=== PATIENT | male | born 1965 | race Caucasian/White ===

== ENCOUNTER 2016-08-19 15:54 | Emergency (ER) | payer OTHER ==
[2016-08-19 16:48] VITALS: BP 126/65
--- NOTE | 2016-08-19 17:01 | UC ---
Ear Complaint HPI - HPI Summary HPI Summary: R ear pain and swelling/tender underneath for about 10 days. Had mastoidectomy on that side more than 10 years, followed by frequent AOE. Usually takes oral abx and drops because he has DMII. Pt sees Dr. August for ENT specialty. - History of Current Complaint Chief Complaint: UCEar Stated Complaint: RIGHT EAR PAIN Time Seen by Provider: 08/19/16 16:52 Hx Obtained From: Patient Onset/Duration: Gradual Onset, Lasting Days Severity Initially: Mild Severity Currently: Moderate Aggravating Factors: Nothing Associated Signs/Symptoms: Positive: Discharge, Swelling @ - Allergies/Home Medications Allergies/Adverse Reactions: Allergies Allergy/AdvReac Type Severity Reaction Status Date / Time No Known Allergies Allergy Verified 08/19/16 16:48 PMH/Surg Hx/FS Hx/Imm Hx Endocrine History Of: Reports: Diabetes - Type 2 Denies: Thyroid Disease, Hyperthyroidism, Hypothyroidism, Dyslipidemia Cardiovascular History Of: Denies: Cardiac Disorders, Hypertension, Pacemaker/ICD, Myocardial Infarction , Congestive Heart Failure, Atrial Fibrillation, Deep Vein Thrombosis, Bleeding Disorders Respiratory History Of: Denies: COPD, Asthma, Bronchitis, Pneumonia, Pulmonary Embolism GI/ History Of: Denies: Gastroesophageal Reflux, Ulcer, Gastrointestinal Bleed, Gall Bladder Disease, Kidney Stones, Diverticulitis, Renal Disease, Urosepsis Neurological History Of: Denies: TIA, CVA, Dementia, Seizures, Migraine Psychological History Of: Denies: Anxiety, Depression, Bipolar Disorder, Schizophrenia, Post Traumatic Stress Disorder Cancer History Of: Denies: Lung Cancer, Colorectal Cancer, Breast Cancer, Prostate Cancer, Cervical Cancer Other History Of: Negative For: HIV, Hepatitis B, Hepatitis C, Anticoagulant Therapy - Surgical History Surgical History: Yes Surgery Procedure, Year, and Place: R mastoidectomy. hemmorhoid surgery - Family History Known Family History: Positive: Cardiac Disease, Hypertension, Diabetes - Social History Lives: With Family Alcohol Use: None Substance Use Type: None Smoking Status (MU): Heavy Every Day Tobacco Smoker Type: Cigarettes Amount Used/How Often: 1 PPD Length of Time of Smoking/Using Tobacco: 25 years Household Exposure Type: Cigarettes Review of Systems Constitutional: Negative Skin: Negative Eyes: Negative ENT: Ear Ache Respiratory: Negative Cardiovascular: Negative Gastrointestinal: Negative Genitourinary: Negative Motor: Negative Neurovascular: Negative Musculoskeletal: Negative Neurological: Negative Psychological: Negative All Other Systems Reviewed And Are Negative: Yes Physical Exam Triage Information Reviewed: Yes Appearance: Well-Appearing, No Pain Distress, Well-Nourished Vital Signs: Initial Vital Signs Temp 99.4 F 08/19/16 16:46 Pulse 80 08/19/16 16:46 Resp 16 08/19/16 16:46 BP 126/65 08/19/16 16:46 Pulse Ox 95 08/19/16 16:46 Vital Signs Reviewed: Yes Eye Exam: Normal Eyes: Positive: Conjunctiva Clear ENT: Positive: Hearing grossly normal, Pharynx normal, TMs normal - L TM only, Other: - yellow discharge in R ear canal Dental Exam: Normal Neck exam: Normal Neck: Positive: Supple, Nontender, No Lymphadenopathy Respiratory Exam: Normal Respiratory: Positive: Chest non-tender, Lungs clear, Normal breath sounds, No respiratory distress, No accessory muscle use Cardiovascular Exam: Normal Cardiovascular: Positive: RRR, No Murmur Musculoskeletal Exam: Normal Neurological Exam: Normal Psychological Exam: Normal Skin Exam: Normal Ear Complaint Course/Dx - Differential Dx/Diagnosis Provider Diagnoses: R otitis externa Discharge - Discharge Plan Condition: Stable Disposition: HOME Prescriptions: Amoxicillin/Clavulanate TAB* [Augmentin TAB 875*] 875 mg PO BID #10 tab Ciproflox/Dexameth OTIC.SUSP* [Ciprodex OTIC.SUSP*] 4 drop RIGHT EAR BID #1 btl Patient Education Materials: Otitis Externa (ED) Referrals: Huang Leger MD [Primary Care Provider] - Jm August MD [Medical Doctor] - If Needed Additional Instructions: Please follow up with Dr. August if you do not see some improvement within the next 5 days. Come back here for any fever or severe symptoms.
== END 2016-08-19 17:04 | disposition home or self-care (01) ==
LOC: UCCORT 15:54
DX: H60.91 Unspecified otitis externa, right ear (principal); F17.210 Nicotine dependence, cigarettes, uncomplicated
CPT/HCPCS: 99212; G0463

== ENCOUNTER 2016-11-11 09:10 | Emergency (ER) | payer OTHER ==
[2016-11-11 09:20] VITALS: BP 117/73
--- NOTE | 2016-11-11 10:02 | UC ---
Ear Complaint HPI - HPI Summary HPI Summary: 51 yo male with right otalgia x 1 week no f/c hx right mastoiditis and and surgery about 20 yrs ago hurts anterior to ear as well - History of Current Complaint Chief Complaint: UCEar Stated Complaint: RIGHT EAR PAIN Time Seen by Provider: 11/11/16 09:46 Hx Obtained From: Patient Onset/Duration: Gradual Onset, Lasting Weeks Severity Initially: Mild Severity Currently: Mild Pain Intensity: 3 Pain Scale Used: 0-10 Numeric Associated Signs/Symptoms: Positive: Hearing Loss - chronic Related History: Prior ENT Surgery - Allergies/Home Medications Allergies/Adverse Reactions: Allergies Allergy/AdvReac Type Severity Reaction Status Date / Time No Known Allergies Allergy Verified 11/11/16 09:15 Home Medications: Home Medications metFORMIN* [Glucophage 500 MG TAB *] 500 mg PO DAILY 11/11/16 [History Confirmed 11/11/16] PMH/Surg Hx/FS Hx/Imm Hx Previously Healthy: Yes Endocrine History Of: Reports: Diabetes - Type 2 Denies: Thyroid Disease, Hyperthyroidism, Hypothyroidism, Dyslipidemia Cardiovascular History Of: Denies: Cardiac Disorders, Hypertension, Pacemaker/ICD, Myocardial Infarction , Congestive Heart Failure, Atrial Fibrillation, Deep Vein Thrombosis, Bleeding Disorders Respiratory History Of: Denies: COPD, Asthma, Bronchitis, Pneumonia, Pulmonary Embolism GI/ History Of: Denies: Gastroesophageal Reflux, Ulcer, Gastrointestinal Bleed, Gall Bladder Disease, Kidney Stones, Diverticulitis, Renal Disease, Urosepsis Neurological History Of: Denies: TIA, CVA, Dementia, Seizures, Migraine Psychological History Of: Denies: Anxiety, Depression, Bipolar Disorder, Schizophrenia, Post Traumatic Stress Disorder Cancer History Of: Denies: Lung Cancer, Colorectal Cancer, Breast Cancer, Prostate Cancer, Cervical Cancer Other History Of: Negative For: HIV, Hepatitis B, Hepatitis C, Anticoagulant Therapy - Surgical History Surgical History: Yes Surgery Procedure, Year, and Place: Right Mastoidectomy, ~[place], [place]; Hemorrhoidectomy, ~[place], [place] - Family History Known Family History: Positive: Cardiac Disease, Hypertension, Diabetes - Social History Alcohol Use: None Substance Use Type: None Smoking Status (MU): Heavy Every Day Tobacco Smoker Type: Cigarettes Amount Used/How Often: 1 PPD Length of Time of Smoking/Using Tobacco: Since Age 24 Have You Smoked in the Last Year: Yes Household Exposure Type: Cigarettes Review of Systems Constitutional: Negative Skin: Negative Eyes: Negative ENT: Ear Ache Respiratory: Negative Cardiovascular: Negative Gastrointestinal: Negative Genitourinary: Negative Motor: Negative Neurovascular: Negative Musculoskeletal: Negative Neurological: Negative Psychological: Negative All Other Systems Reviewed And Are Negative: Yes Physical Exam Triage Information Reviewed: Yes Appearance: Well-Appearing, No Pain Distress, Well-Nourished Vital Signs: Initial Vital Signs Temp 97.4 F 11/11/16 09:13 Pulse 83 11/11/16 09:13 Resp 16 11/11/16 09:13 BP 117/73 11/11/16 09:13 Pulse Ox 100 11/11/16 09:13 Eyes: Positive: Conjunctiva Clear ENT: Positive: TMs normal - unable to visualize right TM due to narrow EAC and debris in canal/tragal tenderness/no mastoid tendernessd. Negative: Normal ENT inspection, Hearing grossly normal, Nasal congestion, Nasal drainage Dental Exam: Normal Neck exam: Normal Neck: Positive: No Lymphadenopathy Respiratory: Positive: Lungs clear, Normal breath sounds, No respiratory distress Cardiovascular: Positive: RRR, No Murmur Musculoskeletal: Positive: ROM Intact, No Edema Neurological: Positive: Alert Psychological Exam: Normal Skin Exam: Normal Ear Complaint Course/Dx - Differential Dx/Diagnosis Provider Diagnoses: right otitis externa Discharge - Discharge Plan Condition: Stable Disposition: HOME Prescriptions: Amoxicillin/Clavulanate TAB* [Augmentin TAB 875*] 875 mg PO BID #20 tab Neomyc/Polym/HC 1% OTIC SUSP* [Cortisporin Otic Susp 1%*] 4 drop RIGHT EAR QID # 1 btl Patient Education Materials: Otitis Externa (ED) Referrals: Huang Leger MD [Primary Care Provider] - 4 Days (if not markedly better) Additional Instructions: advil or aleve
== END 2016-11-11 09:58 | disposition home or self-care (01) ==
LOC: UCCORT 09:10
DX: H60.91 Unspecified otitis externa, right ear (principal); E11.9 Type 2 diabetes mellitus without complications; Z79.84 Long term (current) use of oral hypoglycemic drugs
CPT/HCPCS: 99212; G0463

== ENCOUNTER 2017-01-18 18:57 | Emergency (ER) | payer OTHER ==
[2017-01-18 19:26] VITALS: BP 122/68
[2017-01-18] MEDS ORDERED: Ibuprofen TAB* 600 MG PO ONE (19:30)
--- NOTE | 2017-01-18 19:34 | UC ---
Lower Extremity/Ankle HPI - HPI Summary HPI Summary: today at 1500, playing basketball, twisted right ankle. Took Ibuprofen 600mg at 1600. [ End ] - History of Current Complaint Chief Complaint: UCLowerExtremity Stated Complaint: RIGHT ANKLE INJURY Time Seen by Provider: 01/18/17 19:08 Hx Obtained From: Patient Onset/Duration: Sudden Onset Severity Initially: Moderate Severity Currently: Moderate Aggravating Factor(s): Standing, Ambulation Alleviating Factor(s): Rest, Elevation Able to Bear Weight: Yes - Risk Factors Gout Risk Factors: Age Over 40 - Allergies/Home Medications Allergies/Adverse Reactions: Allergies Allergy/AdvReac Type Severity Reaction Status Date / Time No Known Allergies Allergy Verified 01/18/17 19:04 Home Medications: Home Medications Ibuprofen TAB* [Motrin TAB* 600 MG] 600 mg PO Q8H PRN 01/18/17 [History Confirmed 01/18/17] PMH/Surg Hx/FS Hx/Imm Hx Previously Healthy: Yes Other History Of: Negative For: HIV, Hepatitis B, Hepatitis C, Anticoagulant Therapy - Surgical History Surgical History: Yes Surgery Procedure, Year, and Place: Right Mastoidectomy, ~2004, [facility]; Hemorrhoidectomy, ~[place], [place] - Family History Known Family History: Positive: Cardiac Disease, Hypertension, Diabetes - Social History Occupation: Employed Full-time Lives: With Family Alcohol Use: None Substance Use Type: None Smoking Status (MU): Heavy Every Day Tobacco Smoker Type: Cigarettes Amount Used/How Often: 1 PPD Length of Time of Smoking/Using Tobacco: Since Age 24 Have You Smoked in the Last Year: Yes Household Exposure Type: Cigarettes Review of Systems Constitutional: Negative Skin: Negative Eyes: Negative ENT: Negative Respiratory: Negative Cardiovascular: Negative Gastrointestinal: Negative Genitourinary: Negative Motor: Decreased ROM Neurovascular: Negative Musculoskeletal: Arthralgia Neurological: Negative Psychological: Negative All Other Systems Reviewed And Are Negative: Yes Physical Exam Triage Information Reviewed: Yes Appearance: Well-Appearing Vital Signs: Initial Vital Signs Temp 98.9 F 01/18/17 19:01 Pulse 99 01/18/17 19:01 Resp 16 01/18/17 19:01 BP 122/68 01/18/17 19:01 Pulse Ox 97 01/18/17 19:01 Vital Signs Reviewed: Yes Neck: Positive: 1 Respiratory Exam: Normal Cardiovascular Exam: Normal Musculoskeletal: Positive: ROM Limited @, Other: - right lateral malleolus swelling and tenderness to palpation as well as medial ankle tenderness to palpation but no swelling or bruising present. no distal tib/fib tenderness to lateral foot tenderness . FROM of toes. knee exam WNL. Cap refill < 3 sec. pulses brisk.. Negative: ROM Intact Neurological Exam: Normal Psychological Exam: Normal Skin Exam: Normal Lower Extremity Course/Dx - Course Course Of Treatment: xray neg - Differential Dx/Diagnosis Differential Diagnosis/HQI/PQRI: Contusion, Dislocation, Fracture (Closed), Sprain, Strain Provider Diagnoses: Right ankle sprain Discharge - Discharge Plan Condition: Good Disposition: HOME Patient Education Materials: Ankle Sprain (ED) Referrals: Huang Leger MD [Primary Care Provider] -
--- NOTE | 2017-01-18 19:50 | RAD ---
INDICATION: Right ankle injury. TECHNIQUE: 3 views of the right ankle were obtained. FINDINGS: Soft tissue swelling is noted along the anterolateral aspect of the ankle. No fracture is seen. Joint spaces appear maintained. IMPRESSION: SOFT TISSUE SWELLING, NO FRACTURE IS SEEN.
== END 2017-01-18 20:10 | disposition home or self-care (01) ==
LOC: UCCORT 18:57
DX: S93.401A Sprain of unspecified ligament of right ankle, initial encounter (principal); X50.1XXA Overexertion from prolonged static or awkward postures, initial encounter; Y93.67 Activity, basketball; Y92.310 Basketball court as the place of occurrence of the external cause; F17.210 Nicotine dependence, cigarettes, uncomplicated
CPT/HCPCS: 99213; A9270-GY; G0463

== ENCOUNTER 2017-02-09 09:25 | Emergency (ER) | payer OTHER ==
[2017-02-09] MEDS ORDERED: Lidocaine 4% TOPICAL* 50 ML TOP.SOLN TOPICAL ONE (09:47)
[2017-02-09 09:52] VITALS: BP 135/87
[2017-02-09] MEDS ORDERED: Lidocaine 2% VISCOUS* 15 ML UDC PO ONE (09:57)
--- NOTE | 2017-02-09 10:00 | UC ---
Ear Complaint HPI - HPI Summary HPI Summary: Patient has had re occuring ear pain and infection today presents with new onset right sided facial lesions, swollen external ear and canal. some swelling around the ear, hx of mastoiditis with some of the mastoid having been removed. - History of Current Complaint Chief Complaint: UCEar Stated Complaint: EAR PAIN Time Seen by Provider: 02/09/17 09:40 Hx Obtained From: Patient Onset/Duration: Sudden Onset Severity Initially: Moderate Severity Currently: Severe Associated Signs/Symptoms: Positive: Swelling @, URI Symptoms - Allergies/Home Medications Allergies/Adverse Reactions: Allergies Allergy/AdvReac Type Severity Reaction Status Date / Time No Known Allergies Allergy Verified 02/09/17 09:48 PMH/Surg Hx/FS Hx/Imm Hx Previously Healthy: Yes Other History Of: Negative For: HIV, Hepatitis B, Hepatitis C, Anticoagulant Therapy - Surgical History Surgical History: Yes Surgery Procedure, Year, and Place: Right Mastoidectomy, ~2004, [facility]; Hemorrhoidectomy, ~[place], [place] - Family History Known Family History: Positive: Cardiac Disease, Hypertension, Diabetes - Social History Alcohol Use: None Substance Use Type: None Smoking Status (MU): Heavy Every Day Tobacco Smoker Type: Cigarettes Amount Used/How Often: 1 PPD Length of Time of Smoking/Using Tobacco: Since Age 24 Have You Smoked in the Last Year: Yes Household Exposure Type: Cigarettes Review of Systems Constitutional: Negative Skin: Other - multiple red lesions, nasal labia lesion Eyes: Eye Redness ENT: Negative Respiratory: Negative Cardiovascular: Negative Gastrointestinal: Negative Genitourinary: Negative Motor: Negative Neurovascular: Negative Musculoskeletal: Negative Neurological: Negative Psychological: Negative All Other Systems Reviewed And Are Negative: Yes Physical Exam Triage Information Reviewed: Yes Appearance: Well-Nourished, Ill-Appearing, Pain Distress Vital Signs: Initial Vital Signs Temp 98.8 F 02/09/17 09:48 Pulse 81 02/09/17 09:48 Resp 16 02/09/17 09:48 BP 135/87 02/09/17 09:48 Pulse Ox 97 02/09/17 09:48 Vital Signs Reviewed: Yes Eye Exam: Normal Eyes: Positive: Conjunctiva Inflamed ENT: Positive: Pharyngeal erythema, TM red Dental Exam: Normal Neck exam: Normal Neck: Positive: Supple, Nontender, No Lymphadenopathy Respiratory Exam: Normal Respiratory: Positive: Chest non-tender, Lungs clear, Normal breath sounds Cardiovascular Exam: Normal Cardiovascular: Positive: RRR, No Murmur, Pulses Normal Abdominal Exam: Normal Abdomen Description: Positive: Nontender, No Organomegaly, Soft Bowel Sounds: Positive: Present Musculoskeletal Exam: Normal Musculoskeletal: Positive: Strength Intact, ROM Intact, No Edema Neurological Exam: Normal Neurological: Positive: Alert, Muscle Tone Normal Psychological Exam: Normal Skin: Positive: significant lesion(s) - multiple red lesions, pain in the right eay, and ear, swelling of the mastoid area noted, ear canal is swollen. lesion inside ear canal noted. Ear Complaint Course/Dx - Course Course Of Treatment: hx obtained, exam performed ,meds reviewed, reviewed case with Dr Forrester who also examined the patient. treated for Kyle Nieto, referred to Dermatology and follow up with PCP. dispensed remainder of lidocaine to use as needed for pain - Differential Dx/Diagnosis Differential Diagnosis/HQI/PQRI: Cellulitis, Mastoiditis, Otitis Externa, Other - shingles Provider Diagnoses: herpatic facial lesions. Ear pain pain. Right eye pain. 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 Take the medications as prescribed. 2 Follow up with your PCP and dermatology, I have given a referral to Dr Watkins office. 3. if you develop any severe worsening of symtpoms report for medical care in the ER.
== END 2017-02-09 10:45 | disposition home or self-care (01) ==
LOC: UCCORT 09:25
DX: B00.9 Herpesviral infection, unspecified (principal); H92.01 Otalgia, right ear; H57.11 Ocular pain, right eye; F17.210 Nicotine dependence, cigarettes, uncomplicated
CPT/HCPCS: 99212; G0463

== ENCOUNTER 2017-03-06 08:59 | Emergency (ER) | payer OTHER ==
[2017-03-06 09:30] VITALS: BP 133/78
--- NOTE | 2017-03-06 10:09 | UC ---
Tolu Cox Angela, scribed for [facility] CenterAlexandru MD on 03/06/17 at 0954 . Ear Complaint HPI - HPI Summary HPI Summary: In Room Note: This pt is a 51 y/o male presenting to [facility] c/o right ear pain x3 days. Pt notes his face under his right ear is swollen. He additionally c/o mild pruritic red rash going down his neck. His last ear infection was 3 weeks ago and was on steroids for 5 days. He notes he gets 1 or 2 ear infections every summer. Pt denies nausea, vomiting, diarrhea, abd pain, cough, sore throat. Pt denies using any new lotion cream, shaving cream, or soap. He does not take medication for type 2 diabetes (for 7 months now) and is followed by Dr. Leger. MDs Note: Vital signs are stable, blood pressure is 133/78. 4/10 ear discomfort. Visit history reveals multiple visits for ear problems, particularly in the right ear. Pt is on no blood pressure medications. The pt has diabetes, no history of HTN. Nurses Note: Pt states numerous ear infections over the past couple of months. Pt states had R ear 1.5 weeks ago, just finished medication. States current infection started 3 days ago. Getting progressively worse, now c/o of facial swelling with mild rash down into neck. Followed by Dr. August. - History of Current Complaint Chief Complaint: UCEar Stated Complaint: EAR PAIN Time Seen by Provider: 03/06/17 09:35 Hx Obtained From: Patient Onset/Duration: Lasting Days Aggravating Factors: Nothing Alleviating Factors: Nothing Associated Signs/Symptoms: Positive: Swelling @ - of face under his right ear. Negative: Discharge, Hearing Loss - Allergies/Home Medications Allergies/Adverse Reactions: Allergies Allergy/AdvReac Type Severity Reaction Status Date / Time No Known Allergies Allergy Verified 03/06/17 09:21 PMH/Surg Hx/FS Hx/Imm Hx - Additional Past Medical History Additional PMH: PMHx: Ulcerative colitis 15 yrs ago. Endocrine History: Diabetes Other Cardiovascular History: DENIES: HTN Other History Of: Negative For: HIV, Hepatitis B, Hepatitis C, Anticoagulant Therapy - Surgical History Surgical History: Yes Surgery Procedure, Year, and Place: Right Mastoidectomy, ~2004, [place]; Hemorrhoidectomy, ~[place], [place] - Family History Known Family History: Positive: Cardiac Disease - father, Hypertension, Diabetes - Social History Occupation: Employed Full-time - [employer]. Alcohol Use: None Substance Use Type: None Smoking Status (MU): Heavy Every Day Tobacco Smoker Type: Cigarettes Amount Used/How Often: 1 PPD Length of Time of Smoking/Using Tobacco: Since Age 24 Have You Smoked in the Last Year: Yes Household Exposure Type: Cigarettes Review of Systems Constitutional: Negative Skin: Rash - on both cheeks of face ENT: Ear Ache Respiratory: Negative Cardiovascular: Negative Gastrointestinal: Negative Genitourinary: Negative Motor: Negative Neurovascular: Negative Musculoskeletal: Negative Neurological: Negative All Other Systems Reviewed And Are Negative: Yes Physical Exam Triage Information Reviewed: Yes Vital Signs: Initial Vital Signs Temp 98 F 03/06/17 09:22 Pulse 80 03/06/17 09:22 Resp 18 03/06/17 09:22 BP 133/78 03/06/17 09:22 Pulse Ox 96 03/06/17 09:22 Vital Signs Reviewed: Yes - Additional Comments The patient is well-nourished in no acute distress and in no acute pain. The skin is warm and dry. ON THE RIGHT AND LEFT CHEEK THERE IS MACULOPAPULAR ERYTHEMATOUS RASH. It appears to be an allergic skin reaction. HEENT: The head is normocephalic and atraumatic. The pupils are equal and reactive. The conjunctivae are clear and without drainage. Nares are patent and without drainage. Mouth reveals moist mucous membranes and the throat is without erythema and exudate. THERE IS SLIGHT TENDERNESS IN THE RIGHT MAXILLARY SINUS INFERIORLY. THERE IS MILD SWELLING OF THE LYMPH NODES IN THE ANGLE OF THE MANDIBLE ON THE RIGHT. THERE IS SOME ERYTHEMA OF THE TRAGUS AND MILD TENDERNESS WITH PALPATION OF THE EAC, THE TYMPANIC MEMBRANE IS SCARRED ON THE RIGHT AND SHOWS SOME ERYTHEMA. Neck is supple with full range of motion and non-tender. Respiratory: Chest is non-tender. Lungs are clear to auscultation and breath sounds are symmetrical and equal. Cardiovascular: Hear is regular rate and rhythm. There is no murmur or rub auscultated. There is no peripheral edema and pulses are symmetrical and equal. Abdomen: The abdomen is soft and non-tender. There are normal bowel sounds heard in all four quadrants. Musculoskeletal: There is no back pain noted. Extremities are non-tender with full range of motion. There is good capillary refill. There is no peripheral edema or calf tenderness elicited. Neurological: Patient is alert and oriented to person, place and time. The patient has symmetrical motor strength in all four extremities. Psychiatric: The patient has an appropriate affect and does not exhibit any anxiety or depression. Ear Complaint Course/Dx - Course Course Of Treatment: Medications have been included in the original chart and reviewed. Patient is Urgent/Emergent. BP elevated due to current condition w/o HTN in PMH. On exam, THERE IS SLIGHT TENDERNESS IN THE RIGHT MAXILLARY SINUS INFERIORLY. THERE IS MILD SWELLING OF THE LYMPH NODES IN THE ANGLE OF THE MANDIBLE ON THE RIGHT. THERE IS SOME ERYTHEMA OF THE TRAGUS AND MILD TENDERNESS WITH PALPATION OF THE AEC, THE TYMPANIC MEMBRANE IS SCARRED ON THE RIGHT AND SHOWS SOME ERYTHEMA. ON THE RIGHT AND LEFT CHEEK THERE IS MACULOPAPULAR ERYTHEMATOUS RASH. MDM: I discussed with the pt the need for ear drops and oral medication for his ear infection. Although, Im not absolutely sure what caused his facial rash, I encouraged him not to shave, to use 2.5 hydrocortisone , and if necessary calamine. He will also take if necessary Benadryl and/or non- sedating anti-histamine. - Differential Dx/Diagnosis Provider Diagnoses: 1. Right external otitis. 2. Right otitis media 3. Contact dermatitis of both cheeks Discharge - Discharge Plan Condition: Stable Disposition: HOME Prescriptions: Amoxicillin PO (*) [Amoxicillin 875 MG (*)] 875 mg PO BID #20 tab MDD 2 Hydrocortisone 2.5% CREAM(NF) 1 applic TOPICAL BID #1 tube MDD 2 Neomyc/Polym/HC 1% OTIC SUSP* [Cortisporin Otic Susp 1%*] 4 drop RIGHT EAR QID # 1 btl MDD 4 DROPS Patient Education Materials: Contact Dermatitis (ED), Otitis Externa (ED), Otitis Media (ED) Referrals: Huang Leger MD [Primary Care Provider] - Additional Instructions: Thank you for helping us improve patient care by filling out the My Point Survey. WE DISCUSSED: 1. You have an outer ear infection of your canal and a middle ear infection. Use drops and take oral medication. 2. You have a localized skin reaction: use hydrocortisone, twice a day for 7 days or one day after the condition resolves. Calomine if necessary for itching. Benadryl or Zyrtec for itching. 3. Re check at any time for increased pain, redness, temperature, swelling. I will be here in 2 days; call me with any questions or concerns. The documentation as recorded by the Tolu cedeño Angela accurately reflects the service I personally performed and the decisions made by me, Alexandru Jernigan MD.
== END 2017-03-06 10:12 | disposition home or self-care (01) ==
LOC: UCEAST 08:59
DX: H60.91 Unspecified otitis externa, right ear (principal); H66.91 Otitis media, unspecified, right ear; L25.9 Unspecified contact dermatitis, unspecified cause; F17.210 Nicotine dependence, cigarettes, uncomplicated
CPT/HCPCS: 99212; G0463

== ENCOUNTER 2017-03-12 08:53 | Emergency (ER) | payer OTHER ==
[2017-03-12] MEDS ORDERED: Vancomycin(*) 1,000 MG in NS 0.9% 250 ML* 250 ML IVPB ONE (09:31)
[2017-03-12] MEDS: NS 0.9% 1000 ML* 2,000 ML IV ONE ×2 (09:52→11:19)
[2017-03-12] MEDS ORDERED: Morphine INJ* 4 MG/ML 1 ML CARPUJECT IV ONE (09:56)
[2017-03-12] MEDS ORDERED: Ondansetron INJ* 2 MG/ML VIAL IV ONE (09:57)
[2017-03-12 10:06] LABS: Hematocrit 47 % (42-52); Hemoglobin 16.3 g/dl (14.0-18.0); Mean Corpuscular HGB Conc 35 g/dl (31-36); Mean Corpuscular Hemoglobin 30 pg (27-31); Mean Corpuscular Volume 86 fL (80-94); Mean Platelet Volume 9 um3 (7.4-10.4); Red Blood Count 5.43 10^6/ul (4.0-5.4); Red Cell Distribution Width 15 % (10.5-15); White Blood Count 8.6 10^3/ul (3.5-10.8)
[2017-03-12 10:20] LABS: Albumin 3.6 g/dL (3.2-5.2); C Reactive Protein 2.29 mg/L (< 5.00); Calcium 9.9 mg/dL (8.6-10.3); EGFR African American 106.6 (>60); EGFR Non-African American 82.9 (>60); Globulin 3.2 g/dL (2-4); Total Bilirubin 0.3 mg/dL (0.2-1.0); Total Protein 6.8 g/dL (6.4-8.9)
[2017-03-12] MEDS ORDERED: Iodixanol* (CONTRAST) 320 MG/ML 100 ML SDV IV ONE (10:46)
--- NOTE | 2017-03-12 11:20 | RAD ---
HISTORY: Right ear infection, abscess, mastoiditis, cellulitis COMPARISONS: None TECHNIQUE: Multiple contiguous axial CT scans were obtained of the neck after the administration of nonionic intravenous contrast, with coronal and sagittal multiplanar reformations. FINDINGS: BRAIN AND ORBITS: The visualized brain and orbits are normal. PARANASAL SINUSES: The visualized paranasal sinuses are clear. The patient is status post wall up mastoidectomy on the right. SALIVARY GLANDS: The parotid glands, submandibular glands, sublingual glands are normal. NASAL CAVITY/NASOPHARYNX: The nasal cavity and nasopharynx are normal. ORAL CAVITY/OROPHARYNX: The oral cavity is obscured by streak artifact from dental amalgam. The visualized oral cavity and oropharynx are unremarkable. LARYNGEAL APPARATUS/HYPOPHARYNX: The laryngeal apparatus and hypopharynx are normal. UPPER AIRWAY/UPPER ESOPHAGUS: The visualized upper airway and esophagus are normal. LUNG APICES: The lung apices are clear. THYROID GLAND: The thyroid gland is normal. LYMPH NODES: There are scattered small, less than 1 cm short axis, lymph nodes noted along the anterior and posterior cervical chain. There is no lymphadenopathy by size criteria. VASCULATURE: The vasculature is unremarkable. BONES AND SOFT TISSUES: No bone or soft tissue abnormalities are noted. There is no loculated fluid collection to suggest abscess. OTHER: None. IMPRESSION: STATUS POST RIGHT MASTOIDECTOMY. NO LOCULATED FLUID COLLECTION TO SUGGEST ABSCESS.
[2017-03-12] MEDS ORDERED: oxyCODONE/Acetamin 5/325 MG* TAB PO ONE (12:55)
[2017-03-12 12:58] VITALS: BP 121/84
--- NOTE | 2017-03-12 12:59 | ED ---
Tolu Cox Angela, scribed for Michele Hoang MD on 03/12/17 at 0914 . Throat Pain/Nasal Congestion - HPI Summary HPI Summary: This pt is a 51 y/o male [facility] c/o right ear pain since December, worsening since 03/03/17. Pt states associated neck swelling. Pt notes that he went to Urgent Care last week and was prescribed amoxicillin; he states there has been no improvement since. He reports getting frequent ear infections. Pt had a right mastoidectomy 20-25 years ago. He additionally c/o rash one week ago that started on his ear, now spreading to his chest. Pt endorses chest congestion with cough. He states his ear infection has never been this bad. Pt denies fever, chills, night sweats. - History of Current Complaint Chief Complaint: EDEarPain Time Seen by Provider: 03/12/17 09:07 Hx Obtained From: Patient Onset/Duration: Lasting Days Cough: Productive Related History: Other (Noted In Comments) - frequent ear infections - Allergies/Home Medications Allergies/Adverse Reactions: Allergies Allergy/AdvReac Type Severity Reaction Status Date / Time No Known Allergies Allergy Verified 03/12/17 08:54 PMH/Surg Hx/FS Hx/Imm Hx Endocrine/Hematology History: Reports: Hx Diabetes - Type 2 Denies: Hx Anticoagulant Therapy, Hx Thyroid Disease Cardiovascular History: Denies: Hx Congestive Heart Failure, Hx Deep Vein Thrombosis, Hx Hypertension , Hx Myocardial Infarction, Hx Pacemaker/ICD Respiratory History: Denies: Hx Asthma, Hx Chronic Obstructive Pulmonary Disease (COPD), Hx Lung Cancer, Hx Pneumonia, Hx Pulmonary Embolism GI History: Denies: Hx Gall Bladder Disease, Hx Gastrointestinal Bleed, Hx Ulcer, Hx Urosepsis History: Denies: Hx Kidney Stones, Hx Renal Disease Neurological History: Denies: Hx Dementia, Hx Migraine, Hx Seizures, Hx Transient Ischemic Attacks (TIA) Psychiatric History: Denies: Hx Anxiety, Hx Depression, Hx Schizophrenia, Hx Bipolar Disorder - Surgical History Surgery Procedure, Year, and Place: Right Mastoidectomy, ~2004, [facility]; Hemorrhoidectomy, ~1996, [facility] Infectious Disease History: Reports: Hx Shingles - 2013 Denies: Hx Clostridium Difficile, Hx Hepatitis, Hx Human Immunodeficiency Virus (HIV), Hx of Known/Suspected MRSA, Hx Tuberculosis, Hx Known/Suspected VRE , Hx Known/Suspected VRSA, History Other Infectious Disease, Traveled Outside the [place] in Last 30 Days - Family History Known Family History: Positive: Cardiac Disease - father, Hypertension, Diabetes - Social History Alcohol Use: None Substance Use Type: Reports: None Smoking Status (MU): Heavy Every Day Tobacco Smoker Type: Cigarettes Amount Used/How Often: 1 PPD Length of Time of Smoking/Using Tobacco: Since Age 24 Have You Smoked in the Last Year: Yes Review of Systems Negative: Fever, Chills Eyes: Negative Positive: Ear Ache - right ear Negative: Chest Pain Positive: Cough. Negative: Shortness Of Breath Gastrointestinal: Negative Genitourinary: Negative Positive: Other - neck swelling Positive: Rash Negative: Headache, Weakness All Other Systems Reviewed And Are Negative: Yes Physical Exam - Summary Physical Exam Summary: The patient is well-nourished in no acute distress and in no acute pain. The skin is warm and dry. There is a macular vesicular rash noted over his neck bilaterally and also on the anterior part of chest. HEENT: The head is normocephalic and atraumatic. The pupils are equal and reactive. The conjunctivae are clear and without drainage. Nares are patent and without drainage. Mouth reveals moist mucous membranes and the throat is without erythema and exudate. The external ears are intact. The left ear tympanic membrane is dull with effusion. There is no tragal tenderness. There is no swelling of the external ear. On the right ear there is marked tragal tenderness with some drainage. I did not visualize the tympanic membrane. Inferior to the ear lobe he has a collection of fluid and is tender. There is tenderness over the right mastoid. There is marked soft tissue swelling. Neck is supple with full range of motion and non-tender. Respiratory: Chest is non-tender. Lungs are clear to auscultation and breath sounds are symmetrical and equal. Cardiovascular: Hear is regular rate and rhythm. There is no murmur or rub auscultated. Abdomen: The abdomen is soft and non-tender. There are normal bowel sounds heard in all four quadrants and there is no organomegaly palpated. Musculoskeletal: There is no back pain noted. Extremities are non-tender with full range of motion. There is good capillary refill. There is no peripheral edema or calf tenderness elicited. Neurological: Patient is alert and oriented to person, place and time. The patient has symmetrical motor strength in all four extremities. Psychiatric: The patient has an appropriate affect and does not exhibit any anxiety or depression. Triage Information Reviewed: Yes Vital Signs On Initial Exam: Initial Vitals Temp Pulse Resp BP Pulse Ox 98.7 F 89 16 140/72 97 03/12/17 08:54 03/12/17 08:54 03/12/17 08:54 03/12/17 08:54 03/12/17 08:54 Vital Signs Reviewed: Yes Diagnostics - Vital Signs Vital Signs Temp Pulse Resp BP Pulse Ox 03/12/17 08:54 98.7 F 89 16 140/72 97 - Laboratory Lab Results: Lab Results 03/12/17 03/12/17 03/12/17 Range/Units 09:45 09:45 09:45 WBC 8.6 (3.5-10.8) 10^3/ul RBC 5.43 H (4.0-5.4) 10^6/ul Hgb 16.3 (14.0-18.0) g/dl Hct 47 (42-52) % MCV 86 (80-94) fL MCH 30 (27-31) pg MCHC 35 (31-36) g/dl RDW 15 (10.5-15) % Plt Count 164 (150-450) 10^3/ul MPV 9 (7.4-10.4) um3 Neut % (Auto) 68.7 (38-83) % Lymph % (Auto) 21.7 L (25-47) % [place] % (Auto) 5.8 (1-9) % Eos % (Auto) 2.7 (0-6) % Baso % (Auto) 1.1 (0-2) % Absolute Neuts (auto) 5.9 (1.5-7.7) 10^3/ul Absolute Lymphs (auto) 1.9 (1.0-4.8) 10^3/ul Absolute Monos (auto) 0.5 (0-0.8) 10^3/ul Absolute Eos (auto) 0.2 (0-0.6) 10^3/ul Absolute Basos (auto) 0.1 (0-0.2) 10^3/ul Absolute Nucleated RBC 0 10^3/ul Nucleated RBC % 0 INR (Anticoag Therapy) 0.93 (0.89-1.11) Sodium 137 (133-145) mmol/L Potassium 4.0 (3.5-5.0) mmol/L Chloride 104 (101-111) mmol/L Carbon Dioxide 26 (22-32) mmol/L Anion Gap 7 (2-11) mmol/L BUN 24 (6-24) mg/dL Creatinine 0.96 (0.67-1.17) mg/dL Est GFR ( Amer) 106.6 (>60) Est GFR (Non-Af Amer) 82.9 (>60) BUN/Creatinine Ratio 25.0 H (8-20) Glucose 108 H (70-100) mg/dL Lactic Acid (0.5-2.0) mmol/L Calcium 9.9 (8.6-10.3) mg/dL Total Bilirubin 0.30 (0.2-1.0) mg/dL AST 18 (13-39) U/L ALT 25 (7-52) U/L Alkaline Phosphatase 70 (34-104) U/L C-Reactive Protein 2.29 (< 5.00) mg/L Total Protein 6.8 (6.4-8.9) g/dL Albumin 3.6 (3.2-5.2) g/dL Globulin 3.2 (2-4) g/dL Albumin/Globulin Ratio 1.1 (1-3) 03/12/17 Range/Units 09:45 WBC (3.5-10.8) 10^3/ul RBC (4.0-5.4) 10^6/ul Hgb (14.0-18.0) g/dl Hct (42-52) % MCV (80-94) fL MCH (27-31) pg MCHC (31-36) g/dl RDW (10.5-15) % Plt Count (150-450) 10^3/ul MPV (7.4-10.4) um3 Neut % (Auto) (38-83) % Lymph % (Auto) (25-47) % [place] % (Auto) (1-9) % Eos % (Auto) (0-6) % Baso % (Auto) (0-2) % Absolute Neuts (auto) (1.5-7.7) 10^3/ul Absolute Lymphs (auto) (1.0-4.8) 10^3/ul Absolute Monos (auto) (0-0.8) 10^3/ul Absolute Eos (auto) (0-0.6) 10^3/ul Absolute Basos (auto) (0-0.2) 10^3/ul Absolute Nucleated RBC 10^3/ul Nucleated RBC % INR (Anticoag Therapy) (0.89-1.11) Sodium (133-145) mmol/L Potassium (3.5-5.0) mmol/L Chloride (101-111) mmol/L Carbon Dioxide (22-32) mmol/L Anion Gap (2-11) mmol/L BUN (6-24) mg/dL Creatinine (0.67-1.17) mg/dL Est GFR ( Amer) (>60) Est GFR (Non-Af Amer) (>60) BUN/Creatinine Ratio (8-20) Glucose (70-100) mg/dL Lactic Acid 1.1 (0.5-2.0) mmol/L Calcium (8.6-10.3) mg/dL Total Bilirubin (0.2-1.0) mg/dL AST (13-39) U/L ALT (7-52) U/L Alkaline Phosphatase (34-104) U/L C-Reactive Protein (< 5.00) mg/L Total Protein (6.4-8.9) g/dL Albumin (3.2-5.2) g/dL Globulin (2-4) g/dL Albumin/Globulin Ratio (1-3) Result Diagrams: 03/12/17 09:45 03/12/17 09:45 Lab Statement: Any lab studies that have been ordered have been reviewed, and results considered in the medical decision making process. - CT Soft tissue neck CT CT Interpretation: No Acute Changes - IMPRESSION: status post right mastoidectomy. No loculated fluid collection to suggest abscess. ED physician has reviewed this radiology report and agrees. CT Interpretation Completed By: Radiologist Re-Evaluation - Re-Evaluation First Eval Re-Evaluation Time: 11:46 Comment: I reviewed the CT results with the pt. He is requesting to follow up with Dr. August, ENT. EENT Course/Dx - Course Assessment/Plan: Pt is a 51 y/o male presenting to [facility] c/o right ear pain since December, worsening since 03/03/17. Pt states associated neck swelling. He has been taking amoxicillin for a week, with no improvement. Elevated BP noted. Labs and CT of neck soft tissue were obtained. In the ED course, pt was given zofran, morphine, zosyn, and vancomycin. CT reveals status post right mastoidectomy. No loculated fluid collection to suggest abscess. Pt would like to be followed up by Dr. August. Pt will be discharged with rx Percocet and will follow up with Dr. August today. - Differential Diagnoses Differential Diagnoses: Cellulitis, Mastoiditis, Otitis Externa, Other - malignant otitis externa, abscess - Diagnoses Provider Diagnoses: Chronic otitis externa, Cellulitis of neck Discharge - Discharge Plan Condition: Stable Disposition: HOME Prescriptions: oxyCODONE/Acetamin 5/325 MG* [Percocet 5/325 TAB*] 1 tab PO Q6H PRN #20 tab MDD 4 PRN Reason: Pain Patient Education Materials: Otitis Externa (ED), Cellulitis (ED) Referrals: Jm August MD [Medical Doctor] - Huang Leger MD [Primary Care Provider] - Additional Instructions: Please follow up with Dr. August in his [place] office today as scheduled. The documentation as recorded by the Tolu cedeño Angela accurately reflects the service I personally performed and the decisions made by , Michele Hoang MD.
== END 2017-03-12 13:02 | disposition home or self-care (01) ==
LOC: ED 08:53
DX: H60.91 Unspecified otitis externa, right ear (principal); L03.221 Cellulitis of neck; E11.9 Type 2 diabetes mellitus without complications
CPT/HCPCS: 36415; 70491; 80053; 83605; 85025; 85610; 86140; 87040; 96374; 96375; 99284; A9270-GY; J2270; J2405; J2543; J3370; Q9967

== ENCOUNTER 2017-05-23 17:59 | Emergency (ER) | payer OTHER ==
[2017-05-23 18:25] VITALS: BP 124/82
--- NOTE | 2017-05-23 18:25 | UC ---
Ear Complaint HPI - HPI Summary HPI Summary: 51 YEAR OLD MALE PRESENTS WITH COMPLAINS OF RIGHT EAR AND SHOULDER PAIN. - History of Current Complaint Stated Complaint: RIGHT EAR PAIN Time Seen by Provider: 05/23/17 18:24 Hx Obtained From: Patient Onset/Duration: Gradual Onset Severity Initially: Moderate Severity Currently: Moderate Pain Scale Used: 0-10 Numeric - 5 - Allergies/Home Medications Allergies/Adverse Reactions: Allergies Allergy/AdvReac Type Severity Reaction Status Date / Time No Known Allergies Allergy Verified 05/23/17 18:25 PMH/Surg Hx/FS Hx/Imm Hx Previously Healthy: Yes Other History Of: Negative For: HIV, Hepatitis B, Hepatitis C, Anticoagulant Therapy - Surgical History Surgical History: Yes Surgery Procedure, Year, and Place: Right Mastoidectomy, ~2004, [facility]; Hemorrhoidectomy, ~1996, [facility] - Family History Known Family History: Positive: Cardiac Disease - father, Hypertension, Diabetes - Social History Alcohol Use: None Substance Use Type: None Smoking Status (MU): Heavy Every Day Tobacco Smoker Type: Cigarettes Amount Used/How Often: 1 PPD Length of Time of Smoking/Using Tobacco: Since Age 24 Have You Smoked in the Last Year: Yes Household Exposure Type: Cigarettes Review of Systems Constitutional: Negative Skin: Negative Eyes: Negative ENT: Ear Ache Respiratory: Negative Cardiovascular: Negative Gastrointestinal: Negative Genitourinary: Negative Motor: Negative Neurovascular: Negative Musculoskeletal: Other: - RIGHT SHOULDER PAIN Neurological: Negative Psychological: Negative All Other Systems Reviewed And Are Negative: Yes Physical Exam Triage Information Reviewed: Yes Vital Signs Reviewed: Yes Eye Exam: Normal ENT: Positive: Other - RIGHT EAR PAIN/SWELLING Dental Exam: Normal Neck exam: Normal Neck: Positive: 1 Respiratory Exam: Normal Cardiovascular Exam: Normal Abdominal Exam: Normal Musculoskeletal: Positive: Other: - RIGHT SHOULDER PAIN Neurological Exam: Normal Psychological Exam: Normal Skin Exam: Normal Ear Complaint Course/Dx - Differential Dx/Diagnosis Provider Diagnoses: RIGHT EAR SWELLING. RIGHT SHOULDER PAIN Discharge - Discharge Plan Condition: Stable Disposition: HOME Prescriptions: Amoxicillin PO (*) [Amoxicillin 875 MG (*)] 875 mg PO BID #20 tab Fluocinolone Acetonide (Otic) [Dermotic] 0.01 % RIGHT EAR BID #1 bottle Meloxicam(NF) [Mobic(NF)] 7.5 mg PO BID #30 tab Patient Education Materials: Earache (ED), Tendinitis (ED) Referrals: Joe Trujillo [Physical Therapist] - Huang Leger MD [Primary Care Provider] -
== END 2017-05-23 18:43 | disposition home or self-care (01) ==
LOC: UCCORT 17:59
DX: M25.511 Pain in right shoulder (principal); F17.210 Nicotine dependence, cigarettes, uncomplicated
CPT/HCPCS: 99212; G0463

== ENCOUNTER 2017-06-21 07:56 | Emergency (ER) | payer OTHER ==
[2017-06-21 08:05] VITALS: BP 113/67
--- NOTE | 2017-06-21 09:58 | UC ---
Ear Complaint HPI - HPI Summary HPI Summary: Patient presents with a past medical history of mastoidectomy, he is currently managed by Dr. August and could not be seen by him today. He complains of right external ear pain x 3 days. He sates he has Cipro Otic drops at home and has been using them without any improvement, and in fact he complains of worse swelling of the external ear, and canal, and pain when he touches the external ear. He denies any change in hearing, canal drainage, injury, or trauma. He also denies any fever, chills, headache, neck pain, nausea or vomiting. - History of Current Complaint Chief Complaint: UCEar Stated Complaint: EAR PAIN Time Seen by Provider: 06/21/17 09:38 Hx Obtained From: Patient Onset/Duration: Gradual Onset, Lasting Days Severity Initially: Mild Severity Currently: Moderate Alleviating Factors: Nothing Associated Signs/Symptoms: Positive: Swelling @ - right tragus, external canal. - Allergies/Home Medications Allergies/Adverse Reactions: Allergies Allergy/AdvReac Type Severity Reaction Status Date / Time No Known Allergies Allergy Verified 06/21/17 08:04 PMH/Surg Hx/FS Hx/Imm Hx Previously Healthy: Yes Endocrine History: Diabetes Other History Of: Negative For: HIV, Hepatitis B, Hepatitis C, Anticoagulant Therapy - Surgical History Surgical History: Yes Surgery Procedure, Year, and Place: Right Mastoidectomy, ~2004, [facility]; Hemorrhoidectomy, ~1996, [facility] - Family History Known Family History: Positive: Cardiac Disease - father, Hypertension, Diabetes - Social History Occupation: Employed Full-time Lives: Alone Alcohol Use: None Substance Use Type: None Smoking Status (MU): Heavy Every Day Tobacco Smoker Type: Cigarettes Amount Used/How Often: 1 PPD Length of Time of Smoking/Using Tobacco: Since Age 24 Have You Smoked in the Last Year: Yes Household Exposure Type: Cigarettes - Immunization History Most Recent Influenza Vaccination: NOT CURRENT Review of Systems Constitutional: Negative Skin: Negative Eyes: Negative ENT: Ear Ache Respiratory: Negative Cardiovascular: Negative Gastrointestinal: Negative Genitourinary: Negative Motor: Negative Neurovascular: Negative Musculoskeletal: Negative Neurological: Negative Psychological: Negative Is Patient Immunocompromised?: No All Other Systems Reviewed And Are Negative: Yes Physical Exam Triage Information Reviewed: Yes Appearance: Well-Appearing Vital Signs: Initial Vital Signs Temp 97.6 F 06/21/17 08:01 Pulse 87 06/21/17 08:01 Resp 20 06/21/17 08:01 BP 113/67 06/21/17 08:01 Pulse Ox 96 06/21/17 08:01 Vital Signs Reviewed: Yes Eye Exam: Normal ENT Exam: Other - inspection; external canal slightly erythemic, and edematous. Palpation; tenderness to palpation of tragus, and canal. TM with light yellow effusion, and canal drainage. Dental Exam: Normal Neck exam: Normal Neck: Positive: 1 Respiratory Exam: Normal Cardiovascular Exam: Normal Neurological Exam: Normal Psychological Exam: Normal Skin Exam: Normal Ear Complaint Course/Dx - Course Course Of Treatment: Patient presents with a past medical history of mastoidectomy, and he reports that he ususally get one or two ear infection per year, and this year he has had increased infections, and this one is different, with external ear pain, and swelling of the ear canal,he present clinically with otitis externa, and was treated with ciprodex drops and oral cipro as well. He did not have any tendernes of the mastoid, and I did recommend that he follow up with Dr. August and if his symtpoms worsen he was told to go to the ER. Patient verbalized understanding of and was in agreement with the discharge plan. - Differential Dx/Diagnosis Differential Diagnosis/HQI/PQRI: Otitis Externa Provider Diagnoses: otitis externa Discharge - Discharge Plan Condition: Stable Disposition: HOME Prescriptions: Ciproflox/Dexameth OTIC.SUSP* [Ciprodex OTIC.SUSP*] 4 drop .SEE ORDER BID 10 Days #1 btl Ciprofloxacin TAB* [Cipro 500 MG TAB*] 500 mg PO BID #20 tab Patient Education Materials: Otitis Externa (ED) Referrals: Huang Leger MD [Primary Care Provider] -
== END 2017-06-21 09:55 | disposition home or self-care (01) ==
LOC: UCEAST 07:56
DX: H60.91 Unspecified otitis externa, right ear (principal); E11.9 Type 2 diabetes mellitus without complications; F17.210 Nicotine dependence, cigarettes, uncomplicated; Z98.890 Other specified postprocedural states
CPT/HCPCS: 99212; G0463

== ENCOUNTER 2017-09-13 14:29 | Emergency (ER) | payer OTHER ==
[2017-09-13 14:39] VITALS: BP 133/79
--- NOTE | 2017-09-13 15:03 | UC ---
Lower Extremity/Ankle HPI - HPI Summary HPI Summary: Pt presents with left ankle pain. 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 Had immediate pain. Is able to bear weight, but with a significant limp. Came directly to urgent care. Denies previous injury, numbness, or tingling. - History of Current Complaint Chief Complaint: UCLowerExtremity Stated Complaint: ANKLE INJURY Time Seen by Provider: 09/13/17 14:43 Hx Obtained From: Patient Onset/Duration: Sudden Onset Severity Initially: Moderate Severity Currently: Moderate Pain Intensity: 6 Pain Scale Used: 0-10 Numeric Aggravating Factor(s): Standing, Ambulation Alleviating Factor(s): Rest, Elevation Able to Bear Weight: Yes - Allergies/Home Medications Allergies/Adverse Reactions: Allergies Allergy/AdvReac Type Severity Reaction Status Date / Time No Known Allergies Allergy Verified 09/13/17 14:39 Home Medications: Home Medications NK [No Home Medications Reported] 09/13/17 [History Confirmed 09/13/17] PMH/Surg Hx/FS Hx/Imm Hx Previously Healthy: Yes Other History Of: Negative For: HIV, Hepatitis B, Hepatitis C, Anticoagulant Therapy - Surgical History Surgical History: Yes Surgery Procedure, Year, and Place: Right M[place]oidectomy, ~2004, [facility]; Hemorrhoidectomy, ~1996, [facility] - Family History Known Family History: Positive: Cardiac Disease - father, Hypertension, Diabetes - Social History Occupation: Employed Full-time Lives: With Family Alcohol Use: None Substance Use Type: None Smoking Status (MU): Heavy Every Day Tobacco Smoker Type: Cigarettes Amount Used/How Often: 1 PPD Length of Time of Smoking/Using Tobacco: Since Age 24 Have You Smoked in the Last Year: Yes Household Exposure Type: Cigarettes - Immunization History Most Recent Influenza Vaccination: NOT CURRENT Review of Systems Constitutional: Negative Respiratory: Negative Cardiovascular: Negative Neurovascular: Negative Musculoskeletal: Decreased ROM - Left ankle, Edema - Left ankle, Other: - Pain left ankle Neurological: Negative Psychological: Negative All Other Systems Reviewed And Are Negative: Yes Physical Exam - Summary Physical Exam Summary: GENERAL: NAD. WDWN. No pain distress. SKIN: No rashes, sores, ulcers, masses, lesions. NECK: Supple. Nontender. No lymphadenopathy. CHEST: CTAB. No r/r/w. No accessory muscle use. Breathing comfortably and in no distress. CV: RRR. Without m/r/g. Pulses intact PT and DP. Brisk cap refill. MSK: Left lateral malleolus moderate edema. TTP over ATFL. Pain with dorsiflexion and plantar flexion. Negative talar tilt. No increased laxity. Negative [place] test. NEURO: Alert. Sensations intact and symmetric B/L LEs PSYCH: Age appropriate behavior. Triage Information Reviewed: Yes Vital Signs: Initial Vital Signs Temp 98.7 F 09/13/17 14:36 Pulse 129 09/13/17 14:36 Resp 18 09/13/17 14:36 BP 133/79 09/13/17 14:36 Pulse Ox 97 09/13/17 14:36 Lower Extremity Course/Dx - Course Course Of Treatment: XR: IMPRESSION: SOFT TISSUE SWELLING OVERLYING THE FIBULAR MALLEOLUS WITHOUT RADIOGRAPHICALLY APPARENT FRACTURE OR DISLOCATION. Advised RICE, crutches, ibuprofen, gel ankle splint, and f/u with orthopedics if symptoms persist. - Differential Dx/Diagnosis Provider Diagnoses: Left ankle sprain Discharge - Discharge Plan Condition: Stable Disposition: HOME Patient Education Materials: Ankle Sprain (ED) Referrals: Huang Leger MD [Primary Care Provider] - Additional Instructions: If you develop a fever, shortness of breath, chest pain, new or worsening symptoms - please call your PCP or go to the ED. 1) Rest, Ice, and Elevate your ankle as much as possible over the next 24-48 hours 2) Use the crutches and gel splint as needed for comfort 3) May take 600-800mg ibuprofen every 6-8hours as needed for pain 4) If your symptoms persist or worsen - please call Orthopedics at the number below to schedule a follow up appointment.
--- NOTE | 2017-09-13 15:30 | RAD ---
INDICATION: Left ankle pain after inversion injury playing basketball COMPARISON: None. TECHNIQUE: 3 views of the left ankle were obtained. FINDINGS: There is asymmetric soft tissue swelling overlying the fibular malleolus. The well corticated bones exhibit normal alignment. Joint spaces appear maintained. No acute fracture is seen. Incidental note is made of bony density intervening the distal left tibia and fibular metaphyses most likely representing benign calcification of the syndesmosis. IMPRESSION: SOFT TISSUE SWELLING OVERLYING THE FIBULAR MALLEOLUS WITHOUT RADIOGRAPHICALLY APPARENT FRACTURE OR DISLOCATION. If the patient's symptoms persist, follow-up imaging is recommended.
== END 2017-09-13 16:00 | disposition home or self-care (01) ==
LOC: UCEAST 14:29
DX: S93.402A Sprain of unspecified ligament of left ankle, initial encounter (principal); X50.0XXA Overexertion from strenuous movement or load, initial encounter; Y93.67 Activity, basketball; Y92.9 Unspecified place or not applicable; F17.210 Nicotine dependence, cigarettes, uncomplicated
CPT/HCPCS: 99213; G0463

== ENCOUNTER 2017-10-09 11:34 | Emergency (ER) | payer OTHER ==
[2017-10-09 11:55] VITALS: BP 126/80
--- NOTE | 2017-10-09 12:04 | UC ---
General HPI - HPI Summary HPI Summary: 51 yo WM h/o DM dx'd 2 yrs ago was ON metformin [id number] only and taken off per his PCP's permission, to attempt to control his DM with lifestyle modification, c/o severe dizziness with positional changes associated with extreme fatigue and pains x 1 week. Has been traveling alot lately and not eating or drinking well - History of Current Complaint Chief Complaint: UCDizziness Stated Complaint: DIZZY, LIGHTHEADED Time Seen by Provider: 10/09/17 11:37 Hx Obtained From: Patient Onset/Duration: Sudden Onset, Gradual Onset, Lasting Days, Still Present Onset Severity: Moderate Current Severity: Moderate Pain Intensity: 0 - Allergy/Home Medications Allergies/Adverse Reactions: Allergies Allergy/AdvReac Type Severity Reaction Status Date / Time No Known Allergies Allergy Verified 10/09/17 11:55 Home Medications: Home Medications Ibuprofen 600 mg PO Q6H PRN 10/09/17 [History Confirmed 10/09/17] PMH/Surg Hx/FS Hx/Imm Hx Previously Healthy: No Endocrine History: Diabetes Other History Of: Negative For: HIV, Hepatitis B, Hepatitis C, Anticoagulant Therapy - Surgical History Surgical History: Yes Surgery Procedure, Year, and Place: Right Mastoidectomy, ~2004, [place]; Hemorrhoidectomy, [place], [place] - Family History Known Family History: Positive: Cardiac Disease - father, Hypertension, Diabetes - Social History Alcohol Use: None Substance Use Type: None Smoking Status (MU): Heavy Every Day Tobacco Smoker Type: Cigarettes Amount Used/How Often: 1 PPD Length of Time of Smoking/Using Tobacco: Since Age 24 Have You Smoked in the Last Year: Yes Household Exposure Type: Cigarettes - Immunization History Most Recent Influenza Vaccination: NOT CURRENT Review of Systems Constitutional: Negative Skin: Negative Eyes: Negative ENT: Negative Respiratory: Negative Cardiovascular: Negative Gastrointestinal: Negative Genitourinary: Negative Motor: Negative Neurovascular: Other Musculoskeletal: Negative Neurological: Other - dizzy Psychological: Negative All Other Systems Reviewed And Are Negative: Yes Physical Exam Triage Information Reviewed: Yes Appearance: Ill-Appearing Vital Signs: Initial Vital Signs Temp 36.8 C 10/09/17 11:48 Pulse 92 10/09/17 11:48 Resp 16 10/09/17 11:48 BP 126/80 10/09/17 11:48 Pulse Ox 95 10/09/17 11:48 Eye Exam: Other - NO HORIZONTAL NYSTAGMUS, EOMI ENT Exam: Other - DRY MUCOUS MEMBRANES Dental Exam: Normal Neck exam: Normal Neck: Positive: 1 Respiratory Exam: Normal Respiratory: Positive: Lungs clear Cardiovascular Exam: Normal Abdominal Exam: Normal Musculoskeletal Exam: Normal Neurological Exam: Other - NO focal neuro deficits, CN 2-12 grossly intact Neurological: Positive: Alert, Fatigued. Negative: Lethargic, Unresponsive Psychological Exam: Normal Skin Exam: Normal Diagnostics - EKG Cardiac Rate: NL - BUT MILDY TACHYCARDIC Cardiac Rhythm: Sinus: Normal Ectopy: None ST Segment: Normal Course/Dx - Course Course Of Treatment: FBS 238 and has significant CLinical orthostatic changes and dizziness connoting moderate to severe dehydration;Likely dx includes Uncontrolled DM and orthostatis suspicious for Hyperosmolar hyperglycemic state due to poorly controlled DM exacerbated by dehydration. Advised to go to ER [facility] for more complete labs, and IVF - Differential Dx - Multi-Symptom Provider Diagnoses: Uncontrolled DM. Orthostasis. Dehydration Discharge - Sign-Out/Discharge Documenting (check all that apply): Discharge - Discharge Plan Condition: Stable Disposition: HOME Patient Education Materials: Dehydration (ED), Hyperosmolar Hyperglycemic State (ED) Referrals: Huang Leger MD [Primary Care Provider] - Additional Instructions: Please GO to ER NOW - Billing Disposition and Condition Condition: STABLE Disposition: HOME
== END 2017-10-09 12:01 | disposition home or self-care (01) ==
LOC: UCEAST 11:34
DX: E11.65 Type 2 diabetes mellitus with hyperglycemia (principal); I95.1 Orthostatic hypotension; E86.0 Dehydration; R53.83 Other fatigue; F17.210 Nicotine dependence, cigarettes, uncomplicated
CPT/HCPCS: 93005; 99212; G0463

== ENCOUNTER 2017-12-10 10:17 | Emergency (ER) | payer OTHER ==
[2017-12-10 10:35] VITALS: BP 113/75
--- NOTE | 2017-12-10 11:17 | UC ---
Ear Complaint HPI - HPI Summary HPI Summary: 52 y/o male presets to the urgent care c/o B/L ear pain for the past 2 days w/ a rash in both ear lobes. Pt PMHX of DM type II. Pt reports this has been a recurrent bilat ear pain - History of Current Complaint Chief Complaint: UCEar Stated Complaint: EAR PAIN Time Seen by Provider: 12/10/17 11:14 Hx Obtained From: Patient Onset/Duration: Gradual Onset, Lasting Days - 2 days, Worse Since - today Severity Initially: Mild Severity Currently: Mild Pain Intensity: 3 Pain Scale Used: 0-10 Numeric Aggravating Factors: Other - touch Alleviating Factors: OTC Meds Associated Signs/Symptoms: Positive: Hearing Loss - Allergies/Home Medications Allergies/Adverse Reactions: Allergies Allergy/AdvReac Type Severity Reaction Status Date / Time No Known Allergies Allergy Verified 12/10/17 10:35 PMH/Surg Hx/FS Hx/Imm Hx Previously Healthy: Yes Endocrine History: Diabetes Other History Of: Negative For: HIV, Hepatitis B, Hepatitis C, Anticoagulant Therapy - Surgical History Surgical History: Yes Surgery Procedure, Year, and Place: Right Mastoidectomy, ~2004, [place]; Hemorrhoidectomy, ~[place], [place] - Family History Known Family History: Positive: Cardiac Disease - father, Hypertension, Diabetes - Social History Occupation: Employed Full-time Lives: With Family Alcohol Use: None Substance Use Type: None Smoking Status (MU): Heavy Every Day Tobacco Smoker Type: Cigarettes Amount Used/How Often: 1 PPD Length of Time of Smoking/Using Tobacco: Since Age 24 Have You Smoked in the Last Year: Yes Household Exposure Type: Cigarettes - Immunization History Most Recent Influenza Vaccination: NOT CURRENT Review of Systems Constitutional: Negative Skin: Rash - B/L ear lobes Eyes: Negative ENT: Ear Ache - B/L ear pain Respiratory: Negative Cardiovascular: Negative Gastrointestinal: Negative Genitourinary: Negative Motor: Negative Neurovascular: Negative Musculoskeletal: Negative Neurological: Negative Psychological: Negative Is Patient Immunocompromised?: No All Other Systems Reviewed And Are Negative: Yes Physical Exam - Summary Physical Exam Summary: Vital signs: reviewed General: well developed, well nourished female sitting in the examining table w/ o any apparent distress Skin: [place], warm and dry, no evidence of atopic dermatitis, psoriasis, seborrhea. HEENT: -Head: atraumatic, non tender; no scalp dermatitis. -Eyes: sclera and conjunctiva clear, PERRLA, EOMI -Ears: no pre- or postauricular lymphadenopathy or erythema; RT external ear canal with erythema and yellowish purulent discharge, pinna tenderness on palpation, Rt TM WNL, LF external ear canal clear and LF TM WNL. TMs normal w/ out bulging or retraction. Good light reflex. No fluid level, vesicles, or bullae. No perforation. -Nose/Face: erythematous and edematous nasal mucosa with clear rhinorrhea, no frontal or maxillary sinus tender to palpation. -Mouth/Throat: Mucous membrane moist, posterior pharynx clear, no erythema or exudates. Neck: supple, FROM, nontender, no lymphadenopathy, no meningismus. Chest: Clear to auscultation, normal breath sounds Abd: soft, Bowel sounds active, Nontender. Back: no spinal or CVAT Neuro: A&O x4, GCS 15, no focal neuro deficits, normal behavior for age. Triage Information Reviewed: Yes Vital Signs: Initial Vital Signs Temp 98.2 F 12/10/17 10:32 Pulse 91 12/10/17 10:32 Resp 16 12/10/17 10:32 BP 113/75 12/10/17 10:32 Pulse Ox 100 12/10/17 10:32 Discharge - Discharge Plan Condition: Stable Disposition: HOME Prescriptions: Amoxicillin PO (*) [Amoxicillin 875 MG (*)] 875 mg PO BID #20 tab Mupirocin 2% CREAM* [Bactroban 2% CREAM*] 1 applic TOPICAL TID #1 tube Patient Education Materials: Impetigo (ED), Ear Infection (ED) Referrals: Huang Leger MD [Primary Care Provider] - 2 Days Moncho Carmona MD [Medical Doctor] - If Needed Additional Instructions: 1- Please take the full course of the antibiotic to avoid resistance. 2-Please apply Bactroban ointment as directed over the rash . 3- If you develop fever, painful rash or it doubles insize despite antibiotics, please go immediately to the Er for further management 4-If symptoms do not improve pleawse f/u w/ ENT Dr Carmona due to recurrent ear infections or your PCP for further evaluation and treatment. - Billing Disposition and Condition Condition: STABLE Disposition: Home
== END 2017-12-10 12:20 | disposition home or self-care (01) ==
LOC: UCEAST 10:17
DX: H92.03 Otalgia, bilateral (principal); R21 Rash and other nonspecific skin eruption; E11.9 Type 2 diabetes mellitus without complications; F17.210 Nicotine dependence, cigarettes, uncomplicated; Z82.49 Family history of ischemic heart disease and other diseases of the circulatory system; Z83.3 Family history of diabetes mellitus
CPT/HCPCS: 99212; G0463

== ENCOUNTER 2018-03-12 18:46 | Emergency (ER) | payer OTHER ==
[2018-03-12 19:14] VITALS: BP 113/75
--- NOTE | 2018-03-12 20:07 | UC ---
Skin Complaint HPI - HPI Summary HPI Summary: The patient is a 52-year-old diabetic male who presents with the onset of right arm pain yesterday. The day the pain has worsened and he has noted a vesicular rash. He thinks he has had shingles in the past but his symptoms were nowhere this severe. He had no relief with ibuprofen. - History of Current Complaint Chief Complaint: UCGeneralIllness Time Seen by Provider: 03/12/18 19:53 Stated Complaint: RT ARM PAIN/HAND BLISTERS Hx Obtained From: Patient Onset/Duration: Gradual Onset, Lasting Hours Timing: Constant Onset Severity: Mild Current Severity: Moderate Pain Intensity: 7 Pain Scale Used: 0-10 Numeric Location: Other - right arn Character: Swelling, Pain, Redness, Painful Aggravating Factor(s): Nothing Alleviating Factor(s): Nothing Associated Signs & Symptoms: Positive: Rash - Allergy/Home Medications Allergies/Adverse Reactions: Allergies Allergy/AdvReac Type Severity Reaction Status Date / Time No Known Allergies Allergy Verified 03/12/18 19:09 Home Medications: Home Medications Ibuprofen TAB* [Advil TAB*] 600 mg PO Q6H PRN 03/12/18 [History Confirmed ] Review of Systems Constitutional: Negative Skin: Rash Eyes: Negative ENT: Negative Respiratory: Negative Cardiovascular: Negative Gastrointestinal: Negative Genitourinary: Negative Motor: Negative Neurovascular: Negative Musculoskeletal: Negative Neurological: Negative Psychological: Negative All Other Systems Reviewed And Are Negative: Yes PMH/Surg Hx/FS Hx/Imm Hx Endocrine History: Diabetes - DMII Other History Of: Negative For: HIV, Hepatitis B, Hepatitis C, Anticoagulant Therapy - Surgical History Surgical History: Yes Surgery Procedure, Year, and Place: Right Mastoidectomy, ~2004, [place]; Hemorrhoidectomy, ~1996, [place] - Family History Known Family History: Positive: Cardiac Disease - father, Hypertension, Diabetes - Social History Alcohol Use: None Substance Use Type: None Smoking Status (MU): Heavy Every Day Tobacco Smoker Type: Cigarettes Amount Used/How Often: 1 PPD Length of Time of Smoking/Using Tobacco: Since Age 24 Have You Smoked in the Last Year: Yes Household Exposure Type: Cigarettes - Immunization History Most Recent Influenza Vaccination: NOT CURRENT Physical Exam Triage Information Reviewed: Yes Appearance: Well-Appearing, No Pain Distress, Well-Nourished Vital Signs: Initial Vital Signs Temp 98 F 03/12/18 19:06 Pulse 98 03/12/18 19:06 Resp 18 03/12/18 19:06 BP 113/75 03/12/18 19:06 Pulse Ox 98 03/12/18 19:06 Vital Signs Reviewed: Yes Eyes: Positive: Conjunctiva Clear ENT: Positive: Normal ENT inspection. Negative: Nasal congestion, Nasal drainage, Trismus, Hoarse voice Neck: Positive: Supple, Nontender, No Lymphadenopathy Respiratory: Positive: Lungs clear, Normal breath sounds, No respiratory distress Cardiovascular: Positive: RRR, No Murmur Musculoskeletal: Positive: No Edema Neurological: Positive: Alert Psychological Exam: Normal Skin Exam: Other - vesicular rash right axilla to palm of hand Course/Dx - Diagnoses Provider Diagnoses: shingles Discharge - Sign-Out/Discharge Documenting (check all that apply): Patient Departure All imaging exams completed and their final reports reviewed: No Studies - Discharge Plan Condition: Stable Disposition: HOME Prescriptions: Famciclovir(NF) [Famvir(NF)] 500 mg PO TID #21 tab HYDROcodone/ACETAMIN 5-325 MG* [[place] 5-325 TAB*] 1 tab PO Q4H PRN #15 tab MDD 6 PRN Reason: Pain Patient Education Materials: Shingles (ED) Forms: *Work Release Referrals: Huang Leger MD [Primary Care Provider] - 5 Days Additional Instructions: ibuprogen Opioid-containing medications can cause drowsiness and sedation. You t should not drive or operate machinery or similar activities while taking this medication. Opioids can also cause a positive drug screen, and can be habit- forming. You should follow the instructions exactly and not take any extra medication. Opioid medications should be stored in a secure manner to avoid diversion or theft. You should not drink alcohol while taking these medications - Billing Disposition and Condition Condition: STABLE Disposition: Home
== END 2018-03-12 20:13 | disposition home or self-care (01) ==
LOC: UCCORT 18:46
DX: B02.9 Zoster without complications (principal); E11.9 Type 2 diabetes mellitus without complications; F17.210 Nicotine dependence, cigarettes, uncomplicated
CPT/HCPCS: 99212; G0463

== ENCOUNTER 2018-06-13 16:18 | Emergency (ER) | payer OTHER ==
[2018-06-13 16:25] VITALS: BP 121/76
--- NOTE | 2018-06-13 16:31 | UC ---
Ear Complaint HPI - HPI Summary HPI Summary: 52 y/o male presents to the urgent care c/on RT ear pain for the past week. Pt also c/o redness, swelling, and warm to touch over the medial aspect of his RT 3rd finger since last night. Pt reports his skin around nails is very dry. Last night he noticed some infection started around his nail. Pain at touch is 6/10. Pt has Hx of recurrent ear infections and he has DM type II. Pt has taken Ibuprofen PO 600mg PO to alleviate symptoms. Last dose taken was at 0630AM. Pt denies fever, dizziness, tinnitus, decrease hearing, numbness or tingling sensation over his RT hand, SOB, chest pain, abdominal pain, N/V/D. - History of Current Complaint Chief Complaint: UCEar Stated Complaint: EAR PAIN Time Seen by Provider: 06/13/18 16:30 Hx Obtained From: Patient Onset/Duration: Gradual Onset, Lasting Weeks - 1 week, Still Present, Worse Since - yesterday Severity Initially: Mild Severity Currently: Moderate Pain Intensity: 6 - ear pain Pain Scale Used: 0-10 Numeric Aggravating Factors: Other - touch of finger Alleviating Factors: OTC Meds Associated Signs/Symptoms: Positive: URI Symptoms. Negative: Discharge, Hearing Loss - Allergies/Home Medications Allergies/Adverse Reactions: Allergies Allergy/AdvReac Type Severity Reaction Status Date / Time No Known Allergies Allergy Verified 06/13/18 16:24 PMH/Surg Hx/FS Hx/Imm Hx Previously Healthy: Yes Endocrine History: Diabetes Other GI/ History: Ulceraticve colitis Other History Of: Negative For: HIV, Hepatitis B, Hepatitis C, Anticoagulant Therapy - Surgical History Surgical History: Yes Surgery Procedure, Year, and Place: Right Mastoidectomy, ~2004, [place]; Hemorrhoidectomy, ~1996, [place] - Family History Known Family History: Positive: Cardiac Disease - father, Hypertension, Diabetes - Social History Occupation: Employed Full-time Lives: With Family Alcohol Use: None Substance Use Type: None Smoking Status (MU): Heavy Every Day Tobacco Smoker Type: Cigarettes Amount Used/How Often: 1 PPD Length of Time of Smoking/Using Tobacco: Since Age 24 Have You Smoked in the Last Year: Yes Household Exposure Type: Cigarettes - Immunization History Most Recent Influenza Vaccination: NOT CURRENT Review of Systems All Other Systems Reviewed And Are Negative: Yes Constitutional: Positive: Negative Skin: Positive: Other - redness and swelling around nail of the RT 3rd finger Eyes: Positive: Negative ENT: Positive: Ear Ache - RT ear pain Respiratory: Positive: Negative Cardiovascular: Positive: Negative Gastrointestinal: Positive: Negative Genitourinary: Positive: Negative Motor: Positive: Negative Neurovascular: Positive: Negative Musculoskeletal: Positive: Other: - Rt middle finger pain Neurological: Positive: Negative Psychological: Positive: Negative Is Patient Immunocompromised?: No Physical Exam - Summary Physical Exam Summary: Vital signs: reviewed General: well developed, well nourished male sitting in the examining table w/o any apparent distress Skin: Positive: RT # 3 phalanx near medail aspect of the nail erythema fluctuant , no induration , tender to palpation, mild swelling, and warm to touch. FROM of phalanx, sensation is intact, capillary refill WNL, reflexes WNL HEENT: -Head: atraumatic, non tender; no scalp dermatitis. -Eyes: sclera and conjunctiva clear, PERRLA, EOMI -Ears: no pre- or postauricular lymphadenopathy or erythema; RT external ear canal with erythema and yellowish purulent discharge, pinna tenderness on palpation, Rt TM WNL, LF external ear canal clear and LF TM WNL. TMs normal w/ out bulging or retraction. Good light reflex. No fluid level, vesicles, or bullae. No perforation. -Nose/Face: erythematous and edematous nasal mucosa with clear rhinorrhea, no frontal or maxillary sinus tender to palpation. -Mouth/Throat: Mucous membrane moist, posterior pharynx clear, no erythema or exudates. Neck: supple, FROM, nontender, no lymphadenopathy, no meningismus. Chest: Clear to auscultation, normal breath sounds Abd: soft, Bowel sounds active, Nontender. Back: no spinal or CVAT Neuro: A&O x4, GCS 15, no focal neuro deficits, normal behavior for age. Triage Information Reviewed: Yes Vital Signs: Initial Vital Signs Temp 97.9 F 06/13/18 16:21 Pulse 124 06/13/18 16:21 Resp 18 06/13/18 16:21 BP 121/76 06/13/18 16:21 Pulse Ox 95 06/13/18 16:21 Ear Complaint Course/Dx - Course Course Of Treatment: 52 y/o male presents to the urgent care c/on RT ear pain for the past week. Pt also c/o redness, swelling, and warm to touch over the medial aspect of his RT 3rd finger since last night. Pt reports his skin around nails is very dry. Last night he noticed some infection started around his nail. Pain at touch is 6/10. Pt has Hx of recurrent ear infections and he has DM type II. Pt has taken Ibuprofen PO 600mg PO to alleviate symptoms. Last dose taken was at 0630AM. Pt denies fever, dizziness, tinnitus, decrease hearing, numbness or tingling sensation over his RT hand, SOB, chest pain, abdominal pain , N/V/D. Hx obtained. Pt w/ RT otitis media and RT 3rd phalanx paronychia on examination. Paronychia is not ready yet for I&D. Pt Rx Augmentin PO to cover for both otitis Media and Paronychia, Also Rx Bacitracin oint and Domeboro pkts. Advised to soak his finger. Advised if not improvement of symptoms to return to the urgent care or f/u w/ his PCP in 2-3 days for further management. D/C instructions explained. pt understood and agreed w/ plan of care. - Differential Dx/Diagnosis Differential Diagnosis/HQI/PQRI: Cerumen Impaction, Otitis Externa, Otitis Media , Perforated TM, URI, Other - parpmallorychileyla osorioon Provider Diagnosis: Paronychia of finger of right hand, Otitis media, right Discharge - Sign-Out/Discharge Documenting (check all that apply): Patient Departure - d/c home All imaging exams completed and their final reports reviewed: No Studies - Discharge Plan Condition: Stable Disposition: HOME Prescriptions: Aluminum Sulf/Ca Acetate ESTELA* [Domeboro ESTELA*] 1 applic TOPICAL TID #1 packet Amoxicillin/Clavulanate TAB* [Augmentin TAB 875*] 875 mg PO BID #20 tab Bacitracin OINTMENT* 1 applic TOPICAL BID #1 tube Patient Education Materials: Paronychia (ED), Ear Infection (ED) Referrals: Huang Leger MD [Primary Care Provider] - 2 Days Additional Instructions: 1-Please take full course of antibiotic to avoid resistance. The antibiotic will help for your Otitis Media and the Paronychia. Keep wound clean and dry. Apply bacitracin topical as directed 2- Soak your finger w/ Domeboro pkts and dry it well and apply Bacitracin oint as directed. 3-. Take Ibuprofen PO q6-8hrs prn for pain or swelling. 4-If you develop fever or redness despite antibiotic please go to the ER immediately or return to the Urgent care. 5- If swelling increases despite taking antibiotics please return to the urgent care for Incision and drainage - Billing Disposition and Condition Condition: STABLE Disposition: Home
== END 2018-06-13 16:53 | disposition home or self-care (01) ==
LOC: UCEAST 16:18
DX: L03.011 Cellulitis of right finger (principal); H66.91 Otitis media, unspecified, right ear; E11.9 Type 2 diabetes mellitus without complications; F17.210 Nicotine dependence, cigarettes, uncomplicated
CPT/HCPCS: 99212; G0463

== ENCOUNTER 2018-09-16 14:08 | Emergency (ER) | payer OTHER ==
[2018-09-16 14:32] VITALS: BP 122/73
--- NOTE | 2018-09-16 15:08 | UC ---
Ear Complaint HPI - HPI Summary HPI Summary: 52-year-old male presents with complaints of 3 day history of right ear pain as well as a pruritic rash to his face and forearms. Denies fever, chills, ear discharge, tinnitus, dizziness or vertigo, loss of hearing, nasal congestion, nasal discharge, sore throat, swelling of the lips, tongue, or throat, cough, difficulty breathing, changes in soaps, detergents, lotions, diet, or any known contact with environmental irritants. - History of Current Complaint Chief Complaint: UCEar Stated Complaint: EAR ACHE Time Seen by Provider: 09/16/18 15:02 Hx Obtained From: Patient Pain Intensity: 5 - Allergies/Home Medications Allergies/Adverse Reactions: Allergies Allergy/AdvReac Type Severity Reaction Status Date / Time No Known Allergies Allergy Verified 09/16/18 14:27 PMH/Surg Hx/FS Hx/Imm Hx Endocrine History: Diabetes Other History Of: Negative For: HIV, Hepatitis B, Hepatitis C, Anticoagulant Therapy - Surgical History Surgical History: Yes Surgery Procedure, Year, and Place: Right Mastoidectomy, ~2004, [facility]; Hemorrhoidectomy, ~[place], [facility] - Family History Known Family History: Positive: Cardiac Disease - father, Hypertension, Diabetes - Social History Occupation: Employed Full-time Lives: With Family Alcohol Use: None Substance Use Type: None Smoking Status (MU): Heavy Every Day Tobacco Smoker Type: Cigarettes Amount Used/How Often: 1 PPD Length of Time of Smoking/Using Tobacco: Since Age 24 Have You Smoked in the Last Year: Yes Household Exposure Type: Cigarettes - Immunization History Most Recent Influenza Vaccination: NOT CURRENT Review of Systems All Other Systems Reviewed And Are Negative: Yes Constitutional: Negative: Fever, Chills Skin: Positive: Rash Eyes: Negative: Drainage, Eye Redness ENT: Positive: Ear Ache. Negative: Sore Throat, Nasal Discharge, Sinus Congestion, Sinus Pain/Tenderness Respiratory: Negative: Cough Cardiovascular: Positive: Negative Gastrointestinal: Positive: Negative Genitourinary: Positive: Negative Musculoskeletal: Positive: Negative Neurological: Positive: Negative Is Patient Immunocompromised?: No Physical Exam - Summary Physical Exam Summary: GENERAL APPEARANCE: Well developed, well nourished, alert and cooperative, and appears to be in no acute distress. EYES: Conjunctiva clear. No drainage. Vision is grossly intact. EARS: External auditory canals, left TM intact, opaque with good cone of light , right TM erythematous with effusion, hearing grossly intact. NOSE: No nasal congestion or discharge. THROAT: Pharynx normal. No tonsilar inflammation, swelling, exudate, or lesions. Uvula midline. Oral cavity normal. Teeth and gingiva in good general condition. NECK: Neck supple, non-tender without lymphadenopathy. CARDIAC: Normal S1 and S2. No S3, S4 or murmurs. Rhythm is regular. There is no peripheral edema, cyanosis or pallor. Extremities are warm and well perfused. Capillary refill is less than 2 seconds. Peripheral pulses intact. LUNGS: Clear to auscultation without rales, rhonchi, wheezing or diminished breath sounds. ABDOMEN: Positive bowel sounds. Soft, nondistended, nontender. No guarding or rebound. No masses or hepatosplenomegally. MUSKULOSKELETAL: ROM intact to all extremities. No joint erythema or tenderness. Normal muscular development. Normal gait. SKIN: Single raised pruritic erythematous macular lesion noted to left cheek, erythematous pruritic maculopapular rash to bilateral forearms. Triage Information Reviewed: Yes Vital Signs: Initial Vital Signs Temp 98.2 F 09/16/18 14:28 Pulse 92 09/16/18 14:28 Resp 18 09/16/18 14:28 BP 122/73 09/16/18 14:28 Pulse Ox 97 09/16/18 14:28 Vital Signs Reviewed: Yes Ear Complaint Course/Dx - Course Course Of Treatment: 52-year-old male presents with complaints of 3 day history of right ear pain as well as a pruritic rash to his face and forearms. Denies fever, chills, ear discharge, tinnitus, dizziness or vertigo, loss of hearing, nasal congestion, nasal discharge, sore throat, swelling of the lips, tongue, or throat, cough, difficulty breathing, changes in soaps, detergents, lotions, diet, or any known contact with environmental irritants. Afebrile. Vital signs stable. Exam reveals an adult male in no acute distress with an erythematous right TM with effusion, a single raised, macular, erythematous, pruritic lesion to his left cheek, as well as a erythematous, pruritic papular papular rash to his bilateral forearms, and otherwise unremarkable exam. Will treat him for a right otitis media with Augmentin 875 mg twice a day 10 days, recommend over- the-counter analgesics as needed for pain, as well as give him a topical steroid cream to use for the rash. He is to follow-up with his primary care provider in 2 weeks for recheck of the ear, sooner if symptoms do not improve. Anticipatory guidance and warning symptoms were reviewed with the patient. Verbalizes understanding and agrees with plan of care. - Differential Dx/Diagnosis Differential Diagnosis/HQI/PQRI: Otitis Externa, Otitis Media, Trigeminal Nueralgia, Other - eustachian tube dysfunction, herpes zoster, contact dermatitis, local allergic reaction Provider Diagnosis: Right otitis media with effusion, Dermatitis Discharge - Sign-Out/Discharge Documenting (check all that apply): Patient Departure All imaging exams completed and their final reports reviewed: No Studies - Discharge Plan Condition: Stable Disposition: HOME Prescriptions: Amoxicillin/Clavulanate TAB* [Augmentin TAB 875*] 875 mg PO BID #20 tab Triamcinolone 0.5% CREAM(NF) [Triamcinolone 0.5% CREAM*] 1 applic TOPICAL BID # 1 tube Patient Education Materials: Ear Infection (ED), Dermatitis (ED) Referrals: Huang Leger MD [Primary Care Provider] - 7 Days (If no improvement in symptoms.) Additional Instructions: Your exam revealed a right ear infection. We will start you on an antibiotic for this infection. Start Augmentin 875 mg 1 tab twice a day for 10 days. Use acetaminophen (Tylenol) or ibuprofen (Advil, Motrin) according to directions as needed for pain. I am not sure of the exact cause of the rash but we will treat you for a mild dermatitis. Use triamcinolone cream. Apply a thin layer to the affected areas twice a day. Do not use for more than 2 weeks. Take an over the counter antihistamine such as Zyrtec, Claritin, or Nimo 1 tab twice a day for itching. You may use the generic forms of these medications. Follow up with your primary care provider in 2 weeks for a recheck of the ear, sooner if symptoms do not improve. Seek immediate mediacal attention in the emergency room if you develop fever greater than 100.5 F, have worsening pain, swelling of the lips, tongue, or throat, difficulty breathing, or any worsening of symptoms. - Billing Disposition and Condition Condition: STABLE Disposition: Home
== END 2018-09-16 15:30 | disposition home or self-care (01) ==
LOC: UCEAST 14:08
DX: H65.91 Unspecified nonsuppurative otitis media, right ear (principal); L30.9 Dermatitis, unspecified; E11.9 Type 2 diabetes mellitus without complications; F17.210 Nicotine dependence, cigarettes, uncomplicated
CPT/HCPCS: 99212; G0463

== ENCOUNTER 2018-11-11 09:45 | Emergency (ER) | payer OTHER ==
[2018-11-11 10:01] VITALS: BP 126/78
--- NOTE | 2018-11-11 10:40 | UC ---
Ear Complaint HPI - HPI Summary HPI Summary: 53-year-old male comes in with a chief complaint of right ear pain. Started about 2 days ago. Patient has a history of otitis externa this recurrent in that ear. Any Palpation makes the pain worse. Not touching does not make it worse. No fevers or chills no runny nose. Patient is not a swimmer. - History of Current Complaint Chief Complaint: UCEar Stated Complaint: EAR PAIN Time Seen by Provider: 11/11/18 10:30 Pain Intensity: 5 - Allergies/Home Medications Allergies/Adverse Reactions: Allergies Allergy/AdvReac Type Severity Reaction Status Date / Time No Known Allergies Allergy Verified 11/11/18 10:01 PMH/Surg Hx/FS Hx/Imm Hx Previously Healthy: Yes Endocrine History: Diabetes Other History Of: Negative For: HIV, Hepatitis B, Hepatitis C, Anticoagulant Therapy - Surgical History Surgical History: Yes Surgery Procedure, Year, and Place: Right Mastoidectomy, ~2004, [facility]; Hemorrhoidectomy, ~1996, [facility] - Family History Known Family History: Positive: Cardiac Disease - father, Hypertension, Diabetes - Social History Alcohol Use: None Substance Use Type: None Smoking Status (MU): Heavy Every Day Tobacco Smoker Type: Cigarettes Amount Used/How Often: 1 PPD Length of Time of Smoking/Using Tobacco: Since Age 24 Have You Smoked in the Last Year: Yes Household Exposure Type: Cigarettes - Immunization History Most Recent Influenza Vaccination: NOT CURRENT Review of Systems All Other Systems Reviewed And Are Negative: Yes Constitutional: Positive: Negative Skin: Positive: Negative Eyes: Positive: Negative ENT: Positive: Ear Ache Respiratory: Positive: Negative Cardiovascular: Positive: Negative Gastrointestinal: Positive: Negative Motor: Positive: Negative Neurovascular: Positive: Negative Musculoskeletal: Positive: Negative Neurological: Positive: Negative Psychological: Positive: Negative Is Patient Immunocompromised?: No Physical Exam Triage Information Reviewed: Yes Appearance: Well-Appearing, Well-Nourished, Pain Distress - MILD WITH RT EAR EXAM Vital Signs: Initial Vital Signs Temp 98.7 F 11/11/18 09:56 Pulse 89 11/11/18 09:56 Resp 16 11/11/18 09:56 BP 126/78 11/11/18 09:56 Pulse Ox 94 11/11/18 09:56 Vital Signs Reviewed: Yes Eye Exam: Normal Eyes: Positive: Conjunctiva Clear ENT: Positive: Other - RT EAR CANAL SWELLING,TENDER,WITH DEBRIS. Negative: Nasal congestion Neck exam: Normal Neck: Positive: Supple Respiratory: Positive: No respiratory distress Musculoskeletal Exam: Normal Musculoskeletal: Positive: Strength Intact, ROM Intact Neurological Exam: Normal Neurological: Positive: Alert, Muscle Tone Normal Psychological Exam: Normal Psychological: Positive: Age Appropriate Behavior Skin Exam: Normal Ear Complaint Course/Dx - Course Course Of Treatment: Patient reports the combination of antibiotic; po and ear drops help with the infection therefore, Rx both. - Differential Dx/Diagnosis Provider Diagnosis: Right otitis externa Discharge - Sign-Out/Discharge Documenting (check all that apply): Patient Departure All imaging exams completed and their final reports reviewed: No Studies - Discharge Plan Condition: Stable Disposition: HOME Prescriptions: Amoxicillin/Clavulanate TAB* [Augmentin TAB 875*] 875 mg PO BID #20 tab Ofloxacin 0.3% (Ear Drop)* [Floxin 0.3% OTIC.ALEXIA (Ear Drop)] 5 drop RIGHT EAR BID #1 btl Patient Education Materials: Otitis Externa (ED) Referrals: Huang Leger MD [Primary Care Provider] - Jm Amador MD [Medical Doctor] - Additional Instructions: FOLLOW UP WITH ENT, DR AMADOR. GET RECHECKED SOONER IF YOUR CONDITION WORSENS OR ANY QUESTIONS OR CONCERNS. - Billing Disposition and Condition Condition: STABLE Disposition: Home
== END 2018-11-11 10:52 | disposition home or self-care (01) ==
LOC: UCEAST 09:45
DX: H60.91 Unspecified otitis externa, right ear (principal); F17.210 Nicotine dependence, cigarettes, uncomplicated; E11.9 Type 2 diabetes mellitus without complications
CPT/HCPCS: 99212; G0463

== ENCOUNTER 2019-05-12 16:03 | Emergency (ER) | payer OTHER ==
[2019-05-12 16:28] VITALS: BP 131/79
--- NOTE | 2019-05-12 17:30 | UC ---
Ear Complaint HPI - HPI Summary HPI Summary: 53-year-old male comes in with a chief complaint of right ear pain. Patient has had a history of a mastoidectomy on the right side and when he gets infections he gets treated with both oral and topical antibiotics. No recorded fevers no runny nose. Pain is worse with palpation. - History of Current Complaint Chief Complaint: UCEar Stated Complaint: EAR ACHE Time Seen by Provider: 05/12/19 17:22 Pain Intensity: 5 - Allergies/Home Medications Allergies/Adverse Reactions: Allergies Allergy/AdvReac Type Severity Reaction Status Date / Time No Known Allergies Allergy Verified 05/12/19 16:28 PMH/Surg Hx/FS Hx/Imm Hx Previously Healthy: Yes - recurrent right otitis externa Other History Of: Negative For: HIV, Hepatitis B, Hepatitis C, Anticoagulant Therapy - Surgical History Surgical History: Yes Surgery Procedure, Year, and Place: Right Mastoidectomy, ~2004, [facility]; Hemorrhoidectomy, ~1996, [facility] - Family History Known Family History: Positive: Cardiac Disease - father, Hypertension, Diabetes - Social History Alcohol Use: None Substance Use Type: None Smoking Status (MU): Heavy Every Day Tobacco Smoker Type: Cigarettes Amount Used/How Often: 1 PPD Length of Time of Smoking/Using Tobacco: Since Age 24 Have You Smoked in the Last Year: Yes Household Exposure Type: Cigarettes - Immunization History Most Recent Influenza Vaccination: NOT CURRENT Review of Systems All Other Systems Reviewed And Are Negative: Yes Constitutional: Positive: Other - see hpi Skin: Positive: Negative Eyes: Positive: Negative ENT: Positive: Ear Ache Respiratory: Positive: Negative Cardiovascular: Positive: Negative Gastrointestinal: Positive: Negative Motor: Positive: Negative Neurovascular: Positive: Negative Musculoskeletal: Positive: Negative Neurological: Positive: Negative Psychological: Positive: Negative Is Patient Immunocompromised?: No Physical Exam Triage Information Reviewed: Yes Appearance: Well-Appearing, No Pain Distress, Well-Nourished Vital Signs: Initial Vital Signs Temp 98.7 F 05/12/19 16:25 Pulse 88 05/12/19 16:25 Resp 16 05/12/19 16:25 BP 131/79 05/12/19 16:25 Pulse Ox 99 05/12/19 16:25 Vital Signs Reviewed: Yes Eye Exam: Normal Eyes: Positive: Conjunctiva Clear ENT: Positive: Pharynx normal, Other - Right tragus is tender to palpation. Right ear canal is swollen. Due to the swelling ear canal I cannot see the TM on the right side. Left ear canal is erythematous however the patient denies any pain in the left ear. Left TM is normal.. Negative: Nasal congestion Neck: Positive: Supple Respiratory: Positive: No respiratory distress Musculoskeletal: Positive: Strength Intact, ROM Intact Neurological: Positive: Alert, Muscle Tone Normal Psychological: Positive: Age Appropriate Behavior Skin Exam: Normal Ear Complaint Course/Dx - Course Course Of Treatment: Patient has a history of right mastoidectomy and when he gets otitis externa he gets treated with both oral and topical antibiotics. Patient's to follow-up with ENT. Follow-up sooner if worse or questions or concerns. - Differential Dx/Diagnosis Provider Diagnosis: Right otitis externa Discharge ED - Sign-Out/Discharge Documenting (check all that apply): Patient Departure All imaging exams completed and their final reports reviewed: No Studies - Discharge Plan Condition: Stable Disposition: HOME Prescriptions: Amoxicillin/Clavulanate TAB* [Augmentin TAB 875*] 875 mg PO BID #20 tab Ofloxacin 0.3% (Ear Drop)* [Floxin 0.3% OTIC.ALEXIA (Ear Drop)] 5 drop RIGHT EAR BID #1 btl Patient Education Materials: Otitis Externa (ED) Referrals: Huang Leger MD [Primary Care Provider] - Moncho Carmona MD [Medical Doctor] - Ron Cochran MD [Medical Doctor] - Additional Instructions: FOLLOW UP WITH ENT IF NOT COMPLETELY IMPROVED. GET REEVALUATED SOONER IF NOT IMPROVED OR WORSE OR ANY QUESTIONS OR CONCERNS. - Billing Disposition and Condition Condition: STABLE Disposition: Home
== END 2019-05-12 17:46 | disposition home or self-care (01) ==
LOC: UCEAST 16:03
DX: H60.91 Unspecified otitis externa, right ear (principal); F17.210 Nicotine dependence, cigarettes, uncomplicated
CPT/HCPCS: 99212; G0463

== ENCOUNTER 2019-05-25 09:14 | Emergency (ER) | payer OTHER ==
[2019-05-25 09:25] VITALS: BP 121/83
--- NOTE | 2019-05-25 10:31 | UC ---
Shoulder Pain HPI - HPI Summary HPI Summary: 53-year-old male who was carrying a box of books weighing approximate 40 pounds when he put it into the trunk of his car and felt a sharp pain in his left shoulder. He states that he had a few sharp pains but this morning it's more painful. He denies any injury to it other than what is already stated. He denies any difficulty breathing. - History of Current Complaint Chief Complaint: UCUpperExtremity Stated Complaint: left sholder injury Time Seen by Provider: 05/25/19 10:22 Hx Obtained From: Patient Onset/Duration: Sudden Onset Timing: Intermittent Episode Lasting - Intermittent sharp pains yesterday but more sore this morning. Severity Initially: Mild Severity Currently: Mild Pain Intensity: 6 Character: Sharp, Aching Aggravating Factor(s): Lifting, Abduction Alleviating Factor(s): Rest Associated Signs And Symptoms: Positive: Negative Related History: Dominant Hand Right - Allergies/Home Medications Allergies/Adverse Reactions: Allergies Allergy/AdvReac Type Severity Reaction Status Date / Time No Known Allergies Allergy Verified 05/25/19 09:25 PMH/Surg Hx/FS Hx/Imm Hx Previously Healthy: Yes Endocrine History: Diabetes GI/ History: Other - Ulcerative colitis Other History Of: Negative For: HIV, Hepatitis B, Hepatitis C, Anticoagulant Therapy - Surgical History Surgical History: Yes Surgery Procedure, Year, and Place: Right Mastoidectomy, ~2004, [facility]; Hemorrhoidectomy, ~1996, [facility] - Family History Known Family History: Positive: Cardiac Disease - father, Hypertension, Diabetes - Social History Alcohol Use: None Substance Use Type: None Smoking Status (MU): Heavy Every Day Tobacco Smoker Type: Cigarettes Amount Used/How Often: 1 PPD Length of Time of Smoking/Using Tobacco: Since Age 24 Have You Smoked in the Last Year: Yes Household Exposure Type: Cigarettes - Immunization History Most Recent Influenza Vaccination: NOT CURRENT Review of Systems All Other Systems Reviewed And Are Negative: Yes Motor: Positive: Negative Neurovascular: Positive: Negative Musculoskeletal: Positive: Negative, Other: - Complains of soreness of his left anterior shoulder with movement. Neurological: Positive: Negative Is Patient Immunocompromised?: No Physical Exam Triage Information Reviewed: Yes Appearance: Well-Appearing, No Pain Distress, Well-Nourished Vital Signs: Initial Vital Signs Temp 98.2 F 05/25/19 09:22 Pulse 98 05/25/19 09:22 Resp 18 05/25/19 09:22 BP 121/83 05/25/19 09:22 Pulse Ox 97 05/25/19 09:22 Vital Signs Reviewed: Yes Respiratory: Positive: Lungs clear, Normal breath sounds, No respiratory distress, No accessory muscle use Cardiovascular: Positive: RRR, No Murmur, Pulses Normal, Brisk Capillary Refill Musculoskeletal Exam: Normal Musculoskeletal: Positive: Strength Intact, ROM Intact, Other: - Good peripheral pulses, neuro sensation and capillary refill, full range of motion, patient is able to hold his left arm abducted against resistance without difficulty. Normal muscle contour and muscle strength. Patient has point tenderness to the anterior shoulder, no bruising erythema deformity or swelling is noted. The AC joint is not elevated nor is it tender on palpation. Neurological: Positive: Alert, Muscle Tone Normal Psychological Exam: Normal Skin Exam: Normal Shoulder Course/Dx - Course Course Of Treatment: Patient is comfortable here. I feel this is a muscle strain from lifting the box and I don't feel he needs a shoulder x-ray. He can apply heat to the sore area and follow-up with an orthopedist next week if necessary. - Differential Dx/Diagnosis Provider Diagnosis: Left shoulder strain Discharge ED - Sign-Out/Discharge Documenting (check all that apply): Patient Departure All imaging exams completed and their final reports reviewed: No Studies - Discharge Plan Condition: Good Disposition: HOME Patient Education Materials: Muscle Strain (DC) Referrals: Huang Leger MD [Primary Care Provider] - Viry Fairchild MD [Medical Doctor] - Additional Instructions: Apply heat to the sore area intermittently. May take ibuprofen every 8 hours for pain. Avoid lifting more than 10 pounds for approximately one week. Follow -up with the orthopedist if you have continued pain after one week or sooner if worsening pain. - Billing Disposition and Condition Condition: GOOD Disposition: Home
== END 2019-05-25 10:44 | disposition home or self-care (01) ==
LOC: UCEAST 09:14
DX: S46.912A Strain of unspecified muscle, fascia and tendon at shoulder and upper arm level, left arm, initial encounter (principal); E11.9 Type 2 diabetes mellitus without complications; F17.210 Nicotine dependence, cigarettes, uncomplicated; X58.XXXA Exposure to other specified factors, initial encounter; Y92.9 Unspecified place or not applicable
CPT/HCPCS: 99211; G0463

== ENCOUNTER 2019-08-13 14:28 | Emergency (ER) | payer OTHER ==
[2019-08-13 14:46] VITALS: BP 129/75
--- NOTE | 2019-08-13 14:54 | UC ---
Ear Complaint HPI - HPI Summary HPI Summary: ONSET OF RIGHT EAR PAIN AND A SMALL AMOUNT OF DRAINAGE LAST NIGHT. STATES HE HAS DECREASED HEARING IN HIS RIGHT EAR AT BASELINE AND HAS NOT NOTICED ANY CHANGE IN THIS. PATIENT REPORTS HISTORY OF rRIGHT MASTOIDECTOMY IN 2004 SECONDARY TO AN EAR INFECTION. HE WAS DOING WELL FOR ABOUT 5 YEARS BUT STATES THAT FOR THE PAST 10 YEARS HE HAS HAD ABOUT 2 EAR INFECTIONS A YEAR. HE USED TO FOLLOW WITH ENT IN [place] AND WAS TREATED WITH FLUOCINOLONE OIL 0.01% EARDROPS FOR MAINTENANCE WHICH HE SAYS MADE THINGS WORSE. STATES HE HAS NOT SEEN AN ENT IN OVER A YEAR AND A HALF. HE DENIES ANY FEVER. NO URI SYMPTOMS. - History of Current Complaint Chief Complaint: UCEar Stated Complaint: EAR PAIN Time Seen by Provider: 08/13/19 14:51 Hx Obtained From: Patient Onset/Duration: Gradual Onset, Lasting Hours, Still Present Severity Initially: Moderate Severity Currently: Moderate Pain Intensity: 3 Pain Scale Used: 0-10 Numeric Aggravating Factors: Nothing Alleviating Factors: Nothing Associated Signs/Symptoms: Positive: Discharge, Hearing Loss, Swelling @. Negative: URI Symptoms - Allergies/Home Medications Allergies/Adverse Reactions: Allergies Allergy/AdvReac Type Severity Reaction Status Date / Time No Known Allergies Allergy Verified 08/13/19 14:44 PMH/Surg Hx/FS Hx/Imm Hx Endocrine History: Diabetes Other GI/ History: ULCERATIVE COLITIS Other History Of: Negative For: HIV, Hepatitis B, Hepatitis C, Anticoagulant Therapy - Surgical History Surgical History: Yes Surgery Procedure, Year, and Place: Right Mastoidectomy, ~2004, [facility]; Hemorrhoidectomy, ~1996, [facility] - Family History Known Family History: Positive: Cardiac Disease - father, Hypertension, Diabetes - Social History Alcohol Use: None Substance Use Type: None Smoking Status (MU): Heavy Every Day Tobacco Smoker Type: Cigarettes Amount Used/How Often: 1 PPD Length of Time of Smoking/Using Tobacco: Since Age 24 Have You Smoked in the Last Year: Yes Household Exposure Type: Cigarettes - Immunization History Most Recent Influenza Vaccination: NOT CURRENT Review of Systems All Other Systems Reviewed And Are Negative: Yes Constitutional: Positive: Negative ENT: Positive: Ear Ache Respiratory: Positive: Negative Cardiovascular: Positive: Negative Gastrointestinal: Positive: Negative Physical Exam Triage Information Reviewed: Yes Appearance: Well-Appearing, No Pain Distress, Well-Nourished Vital Signs: Initial Vital Signs Temp 98.5 F 08/13/19 14:45 Pulse 96 08/13/19 14:45 Resp 18 08/13/19 14:45 BP 129/75 08/13/19 14:45 Pulse Ox 96 08/13/19 14:45 Vital Signs Reviewed: Yes Eyes: Positive: Conjunctiva Clear ENT: Positive: Hearing grossly normal, Pharynx normal, Other - RIGHT EAC EDEMATOUS WITH FLUID, TM OPAQUE. LEFT TM NORMAL Neck: Positive: Supple Respiratory: Positive: No respiratory distress, No accessory muscle use Cardiovascular: Positive: Pulses Normal Abdomen Description: Positive: Soft Musculoskeletal: Positive: No Edema Neurological: Positive: Alert Psychological: Positive: Age Appropriate Behavior Skin: Negative: Rashes Ear Complaint Course/Dx - Course Course Of Treatment: PATIENT WITH RIGHT SIDED OTITIS MEDIA WITH PURULENT DRAINAGE AND EAC EDEMA. WILL COVER WITH ORAL AUGMENTIN AND TOPICAL CIPRODEX OTIC ANTIBIOTIC EARDROPS. STRONGLY ENCOURAGED PATIENT TO REESTABLISH WITH AN ENT GIVEN THE RECURRENT NATURE OF HIS EAR INFECTIONS. - Differential Dx/Diagnosis Provider Diagnosis: Right acute suppurative otitis media Discharge ED - Sign-Out/Discharge Documenting (check all that apply): Patient Departure All imaging exams completed and their final reports reviewed: No Studies - Discharge Plan Condition: Stable Disposition: HOME Prescriptions: Amoxicillin/Clavulanate TAB* [Augmentin TAB 875*] 875 mg PO BID #20 tab Ciproflox/Dexameth OTIC.SUSP* [Ciprodex Otic*] 4 drop RIGHT EAR BID #1 bottle Patient Education Materials: Otitis Externa (ED), Ear Infection (ED) Referrals: [facility] [Provider Group] - 2 Weeks Huang Leger MD [Primary Care Provider] - If Needed Additional Instructions: YOU HAVE A CLEAR RIGHT-SIDED EAR INFECTION. GIVEN THE SWELLING IN YOUR EAR CANAL WILL COVER WITH BOTH ORAL AND TOPICAL ANTIBIOTICS (AUGMENTIN AND CIPRODEX OTIC). GIVEN THE REGULARITY OF YOUR RIGHT-SIDED EAR INFECTIONS I RECOMMEND YOU REESTABLISH WITH AN ENT TO DISCUSS YOUR MANAGEMENT OPTIONS. SEEK REEVALUATION IF YOUR SYMPTOMS DO NOT IMPROVE WITH THE ABOVE TREATMENT. - Billing Disposition and Condition Condition: STABLE Disposition: Home
== END 2019-08-13 15:24 | disposition home or self-care (01) ==
LOC: UCEAST 14:28
DX: H66.001 Acute suppurative otitis media without spontaneous rupture of ear drum, right ear (principal); E11.9 Type 2 diabetes mellitus without complications; F17.210 Nicotine dependence, cigarettes, uncomplicated
CPT/HCPCS: 99212; G0463

== ENCOUNTER 2019-09-16 12:33 | Emergency (ER) | payer OTHER ==
[2019-09-16 12:49] VITALS: BP 119/79
--- NOTE | 2019-09-16 12:57 | UC ---
Ear Complaint HPI - HPI Summary HPI Summary: CHIEF COMPLAINT: right ear pain HPI: This is a 53 year old with right ear pain for 2 days. Hx positive for right mastoidectomy. Constant. Also left ear discomfort that began this morning. Has been off augmentin for about a week for similar complaints. Mastoid infection was approximately 10 years ago. Hx. positive for DM II and inactive Ulcereative Colitis. Description of Pain: 09/06 VITAL SIGNS REVIEWED. Within normal limits unless noted here. NURSES NOTE REVIEWED. "Right ear pain x2 days. Has infection in ear 2 weeks ago , treated with augmentin. Now starting to experience left ear pain. " - History of Current Complaint Chief Complaint: UCEar Stated Complaint: EAR PAIN Time Seen by Provider: 09/16/19 12:47 Pain Intensity: 5 - Allergies/Home Medications Allergies/Adverse Reactions: Allergies Allergy/AdvReac Type Severity Reaction Status Date / Time No Known Allergies Allergy Verified 09/16/19 12:46 Home Medications: Home Medications metFORMIN* [Glucophage 1000 MG TAB *] 1,000 mg PO BID 11/04/17 [History Confirmed 09/16/19] Amoxicillin/Clavulanate TAB* [Augmentin TAB 875*] 875 mg PO BID #20 tab MDD 2 [Rx] Ibuprofen TAB* [Motrin TAB* 400 MG] 400 mg PO Q6H PRN 09/16/19 [History Confirmed 09/16/19] Ofloxacin 0.3% (Ear Drop)* [Floxin 0.3% OTIC.ALEXIA (Ear Drop)] 1 drop .SEE ORDER TID #1 btl MDD 10 DROPS A DAY 09/16/19 [Rx] PMH/Surg Hx/FS Hx/Imm Hx - Additional Past Medical History Additional PMH: PAST MEDICAL HISTORY- CHRONIC and RECURRENT HEALTH PROBLEM LIST REVIEWED. Information relevant to present complaint: DM; ulcerative colitis; mastoiditis, right. VISIT HISTORY REVIEWED. MEDICATIONS & ALLERGIES REVIEWED. HYPERTENSION STATUS: none FAMILY HISTORY: Positive for: diabetes SOCIAL HISTORY: Smoker: NONE Home: with daughter Employment: architect intern Previously Healthy: Yes Other History Of: Negative For: HIV, Hepatitis B, Hepatitis C, Anticoagulant Therapy - Surgical History Surgical History: Yes Surgery Procedure, Year, and Place: Right Mastoidectomy, ~[place], [place]; Hemorrhoidectomy, ~[place], [place] - Family History Known Family History: Positive: Cardiac Disease - father, Hypertension, Diabetes - Social History Alcohol Use: None Substance Use Type: None Smoking Status (MU): Heavy Every Day Tobacco Smoker Type: Cigarettes Amount Used/How Often: 1 PPD Length of Time of Smoking/Using Tobacco: Since Age 24 Have You Smoked in the Last Year: Yes Household Exposure Type: Cigarettes - Immunization History Most Recent Influenza Vaccination: NOT CURRENT Review of Systems All Other Systems Reviewed And Are Negative: Yes ENT: Positive: Ear Ache Respiratory: Positive: Negative, Cough Cardiovascular: Positive: Negative Gastrointestinal: Positive: Negative Is Patient Immunocompromised?: No Physical Exam - Summary Physical Exam Summary: Appearance: The patient is well-appearing, is in no pain or distress, and is well-nourished. Eyes: Conjunctiva are clear. Pupils are equal and reactive to light and accommodation. Extra ocular muscle movement is intact. ENT: The hearing is grossly normal, the pharynx is normal, and the TMs are normal. There is no muffled or hoarse voice. No stridor. Examination of the right ear shows that the tragus is tender to palpation. There is no tenderness of the left ear. Neck: The neck is supple and there is no lymphadenopathy. Respiratory: The chest is non-tender to palpation and without crepitus. The lungs are clear, there are normal breath sounds, and there is no respiratory distress. No wheezes, rales or rhonchi. Cardiovascular: Heart sounds reveal a regular rate and rhythm. There are no clicks, rubs or murmurs. There are no carotid bruits or thrills. Circulation is grossly intact. Abdomen: The abdomen is soft and nontender. There is no organomegaly. Bowel sounds are present and within normal limits. No point tenderness at McBurneys point. No CVA tenderness. Musculoskeletal: Strength is intact. The patient moves all extremities. Neurological: The patient is alert. Motor and sensory are examination grossly intact. Speech is normal. Psychological: The patient displays age appropriate behavior, and is conversant. GCS=15. Skin: Negative for rashes. Triage Information Reviewed: Yes Vital Signs: Initial Vital Signs Temp 98.1 F 09/16/19 12:47 Pulse 86 09/16/19 12:47 Resp 15 09/16/19 12:47 BP 119/79 09/16/19 12:47 Pulse Ox 96 03/19/20 12:47 Vital Signs Reviewed: Yes Ear Complaint Course/Dx - Course Course Of Treatment: This is a 53 year old with right ear pain for 2 days. Hx positive for right mastoidectomy. Constant. Also left ear discomfort that began this morning. Has been off augmentin for about a week for similar complaints. Mastoid infection was approximately 10 years ago. Hx. positive for DM II and inactive Ulcereative Colitis. Examination is significant for right ear pain with manipulation of the pinna. Left ear is non tender. TM not redness noted in either ear. Otherwise, examination is non-contributory. NO mastoid tenderness right or left. Diagnosis is right external otitis. I will treat with Augmentin and oflaxocin eardrops. - Differential Dx/Diagnosis Differential Diagnosis/HQI/PQRI: Otitis Externa, Otitis Media Provider Diagnosis: External otitis of right ear Discharge ED - Sign-Out/Discharge Documenting (check all that apply): Patient Departure All imaging exams completed and their final reports reviewed: No Studies - Discharge Plan Condition: Stable Disposition: HOME Prescriptions: Amoxicillin/Clavulanate TAB* [Augmentin TAB 875*] 875 mg PO BID #20 tab MDD 2 Ofloxacin 0.3% (Ear Drop)* [Floxin 0.3% OTIC.ALEXIA (Ear Drop)] 1 drop .SEE ORDER TID #1 btl MDD 10 DROPS A DAY Patient Education Materials: Otitis Externa (DC) Referrals: Huang Leger MD [Primary Care Provider] - Additional Instructions: WE DISCUSSED: PLEASE SEEK CARE AT THE EMERGENCY DEPARTMENT IF SYMPTOMS WORSEN OR IF NEW SYMPTOMS DEVELOP. Watch for increased pain, redness or fever. FOLLOW UP WITH YOUR PRIMARY CARE PHYSICIAN IF CONDITION CONTINUES BEYOND 3 DAYS WITHOUT IMPROVEMENT. YOUR DIAGNOSIS IS: right external otitis YOUR PRESCRIPTION RECOMMENDATION IS: augmentin and oflaxocin drops (to right ear ; also treat left ear) OTHER INSTRUCTIONS: warm moist heat with wash clothe to right ear for 10 minutes 4 times a day; also to left ear if it gets more painful. FOR PAIN AND/OR SLEEP: For pain: Ibuprofen (Motrin and other brand names) 400-600mg PLUS acetaminophen (Tylenol and other brand names) 500mg - 1000mg every 8 hours. DO NOT TAKE IBUPROFEN IF YOU ARE BEING EVALUATED FOR COVID-19. - Billing Disposition and Condition Condition: STABLE Disposition: Home
== END 2019-09-16 13:39 | disposition home or self-care (01) ==
LOC: UCEAST 12:33
DX: H60.91 Unspecified otitis externa, right ear (principal); E11.9 Type 2 diabetes mellitus without complications; Z79.84 Long term (current) use of oral hypoglycemic drugs; F17.210 Nicotine dependence, cigarettes, uncomplicated
CPT/HCPCS: 99212; G0463